=== PATIENT | male | born 1950 | race Caucasian/White ===

== ENCOUNTER 2018-12-01 07:27 | Day surgery (SDC) | payer MEDICARE ==
[~2018-12-01 07:27] MED LIST: Ak-Dilate OPHTHALMIC*** 1.065 ML, Cyclogyl 1% OPHTH SOL 5 ML 1.065 ML, GATIFLOXACIN 0.5... OP ONE; Lactated Ringers 1,000 ML IV SCH; TETRACAINE 0.5% STERI-UNIT SOL OP ONE
[2018-12-01] MEDS ORDERED: Lactated Ringers 1,000 ML IV ONE ×2 (07:34→10:47)
[2018-12-01] MEDS ORDERED: BSS 500 ML, Fortaz/Tazicef 1 GM** 0.2 G IO ONE ×2 (10:00)
[2018-12-01] MEDS ORDERED: Epinephrine Preservative Free 1 MG/ML INTRAOP ONE (10:00)
[2018-12-01] MEDS ORDERED: Zofran 4 MG/2 ML VIAL IV PRN (10:00)
[2018-12-01] MEDS ORDERED: BETADINE 5% OPHTHALMIC 30 ML OP ONE (10:00)
[2018-12-01] MEDS ORDERED: LIDOCAINE HCL 1% AMPUL 5 ML IJ ONE (10:00)
[2018-12-01] MEDS ORDERED: ACETAZOLAMIDE 250 MG TABLET PO ONE (10:00)
[2018-12-01] MEDS ORDERED: DIPRIVAN 200 MG/20 ML IV ONE ×2 (10:22→10:31)
[2018-12-01 12:04] VITALS: BP 143/79; PULSE 66; O2SAT 94
--- NOTE | 2018-12-01 15:36 | OP ---
DATE/TIME OF OPERATION: 12/01/2018 1025 TIME DICTATED: 1442 PREOPERATIVE DIAGNOSIS: Senile cataract of right eye. POSTOPERATIVE DIAGNOSIS: Senile cataract of right eye. SURGEON: Tello Paulino MD WEBSPH[employer] COMMERCE DEVELOPER: None. OPERATION: Cataract extraction of right eye with an intraocular lens implant. STANDARD __X___ COMPLEX ANESTHESIA: MAC. __X__ Monitored anesthesia care in combination with topical and intra-cameral anesthesia (because of the established specific risk of reflux, arrhythmias, or an anxiety attack associated with ocular manipulation as well as difficulty of the pathology laboratory director to manage such potentially catastrophic events while simultaneously attempting to complete the surgical procedure, it was deemed necessary for the patient's safety to have an anesthesiologist or a nurse project developer present during the procedure whenever possible. The anesthesiologist or the nurse project developer was utilized to monitor and regulate the intravenous sedation of the patient, so the patient was cooperative, relaxed, and comfortable). Topical anesthesia using Tetracaine eye drops together with intra cameral anesthesia using Lidocaine 1% MPF. The nurse was utilized to monitor the patient. ANESTHESIA PROVIDER: Dipak Delgado CRNA. COMPLICATIONS: None. BLOOD LOSS: None. INDICATIONS: The patient is undergoing cataract surgery in the hopes of eliminating the visual complaints and difficulty. PROCEDURE: After arriving at the facility's outpatient surgery area, an IV was started; the patient was given 5 mg of p.o. Versed. (If an anesthesia provider was not monitoring the patient) The patient was then given topical anesthetic Tetracaine eye drops. A cotton pellet was soaked into a solution of a combination of Zymaxid 0.5%, Anil-Synephrine 2.5% and Ocufen (other drops might have been substituted referenced in the patient's record). The pellet was inserted by the RN into the lower conjunctival cul-de-sac with a sterile forceps and left for 20 minutes. The pellet was then removed by the RN with a sterile forceps before taking the patient to the operating room. The preoperative area nurse identified the patient and marked the correct eye to be operated on. I identified the correct eye to be operated on and marked it appropriately in the outpatient surgery area. The patient was then taken into the operating room. Tetracaine eye drops were installed again in the correct eye. The eyelids and the lashes and the lid margins were scrubbed with Betadine solution. One drop of the diluted Betadine solution was placed in the conjunctival cul-de-sac for 45 seconds and then was irrigated. A drop of Tetracaine Gel was placed in the conjunctival cul-de-sac. The patient's forehead was taped to secure it during the procedure. The patient was monitored. The patient was then draped in the usual way for this procedure. An eye speculum was used to separate the eyelids. The eye was then fixated and a temporal 2.5 mm incision was made in the clear cornea temporally at the limbus. Through the incision, 0.25 cc of 1% non-preserved lidocaine was injected into the anterior chamber for intracameral anesthesia. The anterior chamber was then filled with viscoelastic. The pupil was small. I felt that it would be safer to mechanically dilate the pupil. A Malyugin ring was used at this point which dilated the pupil. That was removed at the end of the procedure prior to aspiration of the viscoelastic from the anterior chamber and posterior to the intraocular lens implant. The cataract had a great amount of cortical changes. That rendered seeing the anterior capsule difficult for a safe performance of an anterior capsulotomy. I injected an air bubble into the anterior chamber. I then injected 1 ML of vision blue solution into the anterior chamber. The vision blue solution was irrigated from the anterior chamber after 30 seconds. The anterior capsule was stained which facilitated performing the anterior capsulotomy safely. After that was completed, a cystotome was introduced into the anterior chamber and a round anterior capsulotomy was performed. The capsule was removed by a forceps. Hydrodissection was next carried utilizing a 25-gauge cannula and balanced salt solution to delineate the cortical material from the capsule and the nucleus from the cortical material. The nucleus was rotated freely into the capsular bag with no difficulty. The phaco tip of the [employer] Phacoemulsifier was introduced into the anterior chamber and two grooves were made into the nucleus 90 degrees apart. Using two spatulas resulted into the nucleus being fractured into four quadrants. The phaco tip was then used to remove each quadrant of the nucleus. Viscoelastic was used during this process to protect the corneal endothelium. Once the entire nucleus was removed, the phaco tip then was removed and the irrigation tip was introduced into the eye and the cortex was removed. The posterior capsule was polished. It was noticed that there was a tear into the posterior capsule with few vitreous strands into the pupil plan. An anterior vitrectomy was performed. A 23.00 diopter, [id number], posterior chamber lens implant, was inspected and found to be grossly normal. The implant was inserted into the implant injector cartridge; Viscoelastic again was introduced into the anterior chamber, which filled the capsular bag. The implant injector's cartridge tip was placed at the limbal wound and the posterior chamber implant was released into the capsular bag and rotated appropriately. The implant was found to be into the capsular bag and it was centered. 0.2 ml of Tri-Moxi was introduced via 27 gauge cannula into the vitreous cavity through the ciliary processes. Viscoelastic was aspirated from the anterior chamber and posterior to the intraocular lens implant from the capsular bag using the irrigating tip. The anterior chamber was irrigated and filled with 5 cc antibiotic solution (500 cc of BSS plus 2 ml of Fortaz 100 mg/ml) ( if patient was not allergic to the medication). The lips of the corneal incision were hydrated using BSS solution. The anterior chamber was checked and found to be water tight. ___X__ One drop each of antibiotic, steroid and NSAID drops (refer to chart for drops used) were placed in the conjunctival cul-de-sac of the operated eye. Patient tolerated the procedure quite well and left the operating room in satisfactory condition. DISCHARGE SUMMARY: The patient was released in stable condition. The patient and those with the patient were given an instruction sheet as of how to care for the eye after surgery as well as counseling on any abnormal laboratory studies by the postoperative RN. The patient was also given an appointment card for follow-up in the office and is to call immediately for any difficulties including but not limited to pain in the eye, decreased vision, discharge from the eye, headache and or fever. DISCHARGE DIAGNOSIS: Pseudophakia of right eye.
== END 2018-12-01 11:55 | disposition home or self-care (01) ==
LOC: SDC 07:27
PROVIDERS: ATTEND Ophthalmology
DX: H25.811 Combined forms of age-related cataract, right eye (principal); E11.9 Type 2 diabetes mellitus without complications; I10 Essential (primary) hypertension; E78.00 Pure hypercholesterolemia, unspecified; Z79.899 Other long term (current) drug therapy
CPT/HCPCS: C1780; J0171; J2704; A9270-GY

== ENCOUNTER 2020-09-04 10:26 | Day surgery (SDC) | payer MEDICARE ==
[~2020-09-04 10:26] MED LIST changes: -Ak-Dilate OPHTHALMIC*** 1.065 ML, Cyclogyl 1% OPHTH SOL 5 ML 1.065 ML, GATIFLOXACIN 0.5... OP ONE; +Lactated Ringers 1,000 ML IV ONE; -Lactated Ringers 1,000 ML IV SCH; -TETRACAINE 0.5% STERI-UNIT SOL OP ONE
[2020-09-04] MEDS ORDERED: Lactated Ringers 1,000 ML IV SCH (10:30)
[2020-09-04] MEDS ORDERED: DIPRIVAN 200 MG/20 ML IV ONE (13:09)
--- NOTE | 2020-09-04 13:25 | HP ---
PROCEDURE DATE: 09/04/2020 HISTORY OF PRESENT ILLNESS: The patient is a 70 y/o with no prior colonoscopy. No blood stools. No change in bowel movements. No pain. PAST MEDICAL HISTORY: Diabetes. Some hypertension and hyperlipidemia. CURRENT MEDICATIONS: Simvastatin, potassium chloride, Lisinopril, , , gabapentin, furosemide, cream prn, amlodipine, Basaglar, and Cialis. PAST SURGICAL HISTORY: He had left knee and left and right big toe joint procedure in the past. Also include back surgery and appendectomy. SOCIAL HISTORY: No smoking. Does drink some alcohol. REVIEW OF SYSTEMS: 14 systems reviewed pertinent for diabetes, a little bit hard of hearing. No chest pain or palpitations. Other systems negative or noncontributory other than above and per admission assessment. PHYSICAL EXAMINATION: GENERAL: No acute distress. HEENT: Sclerae nonicteric. NECK: No JVD. CHEST: Equal excursion. Nonlabored breathing. CVS: Regular rate and rhythm. ABDOMEN: Soft. No peritoneal signs. EXTREMITIES: No significant edema. NEURO: Alert, moving extremities symmetrically. PSYCH: Appropriate mood and affect. RECTAL: Deferred until time of endoscopy exam. IMPRESSION: 1. NO PRIOR COLONOSCOPY. NEEDS SCREENING COLONOSCOPY. Risks and benefits explained in detail. Shown the risk sheet. Explained the procedure detail including risk of bleeding; infection; risk of bowel injury or perforation possibly requiring open procedure; risk of missed or nondiagnosis or incomplete exam possibly requiring barium enema or other studies or procedures; general risk of anesthesia or sedation; risk of bowel prep, but not limited to. Consent obtained. Will proceed with outpatient screening colonoscopy.
[2020-09-04 14:09] VITALS: O2SAT 98
[2020-09-04 14:40] VITALS: BP 152/78; PULSE 74
--- NOTE | 2020-09-05 12:18 | OP ---
SURGERY DATE: 09/04/2020 SURGERY TIME: 1315 PREOPERATIVE DIAGNOSIS: 1. NEED FOR SCREENING COLONOSCOPY. NO PRIOR COLONOSCOPY. POSTOPERATIVE DIAGNOSIS: 1. FAIR BOWEL PREP. 2. CLASS II. 3. 1.3 CM POLYP DISTAL SIGMOID COLON. 4. SMALLER POLYPS ASCENDING COLON, TRANSVERSE COLON, AND SIGMOID COLON. 5. MILD DIVERTICULOSIS. PROCEDURE: 1. Colonoscopy to terminal ileum. 2. Retrograde ileoscopy. 3. Hot snare polypectomy of 2 small proximal ascending colon polyps. 4. Hot biopsy polypectomy small transverse colon polyp. 5. Hot biopsy polypectomy of 3 small early sigmoid colon polyps. 6. Hot snare polypectomy of larger, approximately 1.3 cm, polyp distal sigmoid colon with ink spot tattooing the location. SURGEON: Dr. John Callejas. ANESTHESIA: MAC. ESTIMATED BLOOD LOSS: Minimal. INDICATIONS: As noted above. Risks and benefits explained in detail, but not limited to. Consent obtained. DESCRIPTION OF PROCEDURE AND FINDINGS: The patient was taken to the endoscopy room. MAC anesthesia induced after official time-out explaining procedure. Digital rectal exam did not reveal any masses. Video colonoscope inserted and passed up through the slightly tortuous sigmoid, descending, transverse, and ascending colon around to the cecum. Appendiceal orifice and bowel were identified and photo documented as well as the terminal ileum. Retrograde ileoscopy was performed which was grossly unremarkable. The scope was then carefully withdrawn over the next 13 minutes. Withdrawal time was approximately 13 minutes. Two small polyps in the proximal ascending colon about 3 mm in size were removed with hot snare polypectomy. Good hemostasis noted. Small 2 mm polyp in the transverse colon was removed with hot biopsy forceps and brief bursts of cautery. Good hemostasis noted. Hot biopsy polypectomy was also accomplished with 3 small early sigmoid colon polyps. There was one larger approximately 1.3 cm pedunculated polyp. This was removed completely with the snare and brief bursts of cautery elevating it well away from the bowel wall. The site was marked with ink spot tattooing. This was in the distal sigmoid colon. Good hemostasis noted. The remainder of the rectum grossly unremarkable at this time. The scope was withdrawn. The patient tolerated the procedure well. There were no immediate complications. We will see him back in the office next week to go over the path results.
== END 2020-09-04 14:40 | disposition home or self-care (01) ==
LOC: SDC 10:26
PROVIDERS: ATTEND Surgery
DX: Z12.11 Encounter for screening for malignant neoplasm of colon (principal); K57.30 Diverticulosis of large intestine without perforation or abscess without bleeding; D12.2 Benign neoplasm of ascending colon; D12.5 Benign neoplasm of sigmoid colon; D12.3 Benign neoplasm of transverse colon; E11.9 Type 2 diabetes mellitus without complications; I10 Essential (primary) hypertension; E78.5 Hyperlipidemia, unspecified; Z79.899 Other long term (current) drug therapy
CPT/HCPCS: 82947; 99100; J2704

== ENCOUNTER 2021-01-30 07:31 | Day surgery (SDC) | payer MEDICARE ==
[~2021-01-30 07:31] MED LIST changes: +Ak-Dilate OPHTHALMIC*** 1.065 ML, Cyclogyl 1% OPHTH SOL 5 ML 1.065 ML, GATIFLOXACIN 0.5... OP ONE; +BETADINE 5% OPHTHALMIC 30 ML OP ONE; +Lactated Ringers 1,000 ML IV SCH; +NON-FORMULARY ITEM IJ ONE; +NON-FORMULARY ITEM OP ONE; +TETRACAINE 0.5% STERI-UNIT SOL OP ONE; +cefUROXime sodium 0.005 GM in Sodium Chloride Flush 30 ML*** 0.5 ML IJ ONE
[2021-01-30] MEDS ORDERED: LIDOCAINE HCL 1% 50 MG/5 ML VL PF IJ ONE (07:32)
[2021-01-30] MEDS ORDERED: Epinephrine Preservative Free 1 MG/ML IJ ONE (07:32)
[2021-01-30] MEDS ORDERED: ACETAZOLAMIDE 250 MG TABLET PO ONE (09:00)
[2021-01-30] MEDS ORDERED: Zofran 4 MG/2 ML VIAL IV PRN (09:00)
[2021-01-30] MEDS ORDERED: SUBLIMAZE 100 MCG/2 ML ONE (09:45)
[2021-01-30] MEDS ORDERED: Versed 2 MG/2 ML Injection ONE (09:45)
[2021-01-30] MEDS ORDERED: ROBINUL ONE (09:45)
[2021-01-30] MEDS ORDERED: DIPRIVAN 200 MG/20 ML IV ONE (09:45)
== END 2021-01-30 10:57 | disposition home or self-care (01) ==
LOC: SDC 07:31
PROVIDERS: ATTEND Ophthalmology
DX: H25.812 Combined forms of age-related cataract, left eye (principal); Z79.899 Other long term (current) drug therapy; E11.9 Type 2 diabetes mellitus without complications
CPT/HCPCS: 82947; 99100; C1780; J0171; J2001; J2250; J2704; J3010; A9270-GY

== ENCOUNTER 2021-12-03 10:04 | Day surgery (SDC) | payer MEDICARE ==
--- NOTE | 2021-12-03 08:11 | HP ---
DATE OF SURGERY: 12/03/2021 HISTORY OF PRESENT ILLNESS: The patient is a 71-year-old with enlarging cyst right side neck and desires excision. He is concerned about risk of infection. PAST MEDICAL HISTORY: Diabetes, hypertension, hyperlipidemia. PAST SURGICAL HISTORY: Knee surgery. Toe surgery. Back surgery. Appendectomy. He had colonoscopy in the past. MEDICATIONS: Includes gabapentin, Simvastatin, lisinopril, furosemide, Insulin Glargine, potassium chloride, metformin, amlodipine, semaglutide, Fenofibrate. ALLERGIES: NKDA. FAMILY HISTORY: Negative in regards to this problem. SOCIAL HISTORY: No smoking. Some alcohol use denies abuse. REVIEW OF SYSTEMS: Fourteen systems reviewed pertinent for multiple medical problems as noted above. He is a little bit hard of hearing. No chest pain or palpitations. Other systems negative or noncontributory as above and per preadmission questionnaire. PHYSICAL EXAMINATION: GENERAL: No acute distress. HEENT: Sclerae nonicteric. NECK: No JVD. He has a right neck cyst or nodule. CHEST: Equal excursion, nonlabored breathing. CVS: Regular rate and rhythm. ABDOMEN: Soft. No peritoneal signs. EXTREMITIES: No significant edema. NEURO: Alert, oriented, moving extremities symmetrically. No gross motor deficits noted. PSYCH: Appropriate mood and affect. IMPRESSION: Neck cyst or nodule in need of excision for definitive path and treatment. Risks and benefits explained in detail including but not limited to bleeding or infection, risk of wound dehiscence possibly requiring packing, general risk of aches, pains, burning or numbness but not limited to. General risk of anesthesia, deep venous thrombosis, pulmonary embolism, or pneumonia but not limited to. What we excise likely will not recur, will send off for lab. He could develop another cyst or nodule adjacent to or elsewhere on his body. He understands and agrees to the planned procedure, will proceed with excisional biopsy of right neck cyst or nodule as an outpatient.
[~2021-12-03 10:04] MED LIST changes: -Ak-Dilate OPHTHALMIC*** 1.065 ML, Cyclogyl 1% OPHTH SOL 5 ML 1.065 ML, GATIFLOXACIN 0.5... OP ONE; -BETADINE 5% OPHTHALMIC 30 ML OP ONE; -Lactated Ringers 1,000 ML IV SCH; -NON-FORMULARY ITEM IJ ONE; -NON-FORMULARY ITEM OP ONE; +Sensorcaine 0.25% 10 ML ONE; -TETRACAINE 0.5% STERI-UNIT SOL OP ONE; -cefUROXime sodium 0.005 GM in Sodium Chloride Flush 30 ML*** 0.5 ML IJ ONE
[2021-12-03] MEDS ORDERED: Lactated Ringers 1,000 ML IV SCH (10:30)
[2021-12-03 10:47] LABS: ANION GAP 14.5 MEQ/L (5-15); BLOOD UREA NITROGEN 15 mg/dL (9-20); CHLORIDE 105 mmol/L (98-107); Calcium 9.9 mg/dL (8.4-10.2); Carbon Dioxide 23 mmol/L (22-30); Creatinine 1 1.04 mg/dL (0.66-1.25); EST GLOMERULAR FILTRATION RATE > 60.0 ML/MIN; Glucose 119 mg/dL (74-106); Potassium 4.4 mmol/L (3.5-5.1); SODIUM 138 mmol/L (137-145)
[2021-12-03] MEDS ORDERED: DIPRIVAN 200 MG/20 ML IV ONE (12:38)
[2021-12-03] MEDS ORDERED: XYLOCAINE 1% HCL 20 ML MDV ONE (12:38)
[2021-12-03] MEDS ORDERED: Versed 2 MG/2 ML Injection ONE (12:38)
[2021-12-03] MEDS ORDERED: SUBLIMAZE 100 MCG/2 ML ONE ×2 (12:38→13:00)
[2021-12-03] MEDS ORDERED: Sensorcaine 0.25% 10 ML ONE (12:45)
[2021-12-03] MEDS ORDERED: KEFZOL 1 GM ONE (13:00)
--- NOTE | 2021-12-03 13:53 | OP ---
SURGERY DATE/TIME: 12/03/2021 1245 PREOPERATIVE DIAGNOSIS: Persistent right neck cyst in need of excision. POSTOPERATIVE DIAGNOSIS: Persistent right neck cyst in need of excision. PROCEDURE: Excisional biopsy right neck cyst (approximately 2 cm). SURGEON: Dr. John Callejas. ANESTHESIA: General. ESTIMATED BLOOD LOSS: Minimal. INDICATIONS: As noted above. Risks and benefits explained in detail and not limited to and consent obtained. The site was marked and confirmed in the preoperative holding area. DESCRIPTION OF PROCEDURE AND FINDINGS: Taken to the OR. General anesthesia induced. The neck is prepped and draped in the usual sterile fashion. After official time out and no disagreement with planned procedure, marking out around this area. Dissection carried down to normal appearing subcutaneous tissue beneath dissecting off the underlying fascia. It is carefully mobilized upwards. It was about a 2 cm cyst passed off for pathology. Good hemostasis noted. The wound was closed with 3-0 Vicryl closing the deep and superficial subcu. Skin closed with 4-0 Vicryl. Steri-Strips and sterile dressing applied. 0.25% Marcaine local injected along the wound. The patient tolerated the procedure well. There were no immediate complications. Findings discussed with the family out in the waiting area.
[2021-12-03 14:32] VITALS: BP 189/93; PULSE 74; O2SAT 96
== END 2021-12-03 14:35 | disposition home or self-care (01) ==
LOC: SDC 10:04
PROVIDERS: ATTEND Surgery
DX: L72.0 Epidermal cyst (principal); I10 Essential (primary) hypertension
CPT/HCPCS: 36415; 80048; 93005; 99100; J0690; J2250; J2704; J3010

== ENCOUNTER 2022-11-11 09:38 | Day surgery (SDC) | payer MEDICARE ==
--- NOTE | 2022-11-11 08:19 | HP ---
DATE OF SURGERY: 11/11/2022 HISTORY OF PRESENT ILLNESS: The patient is a 72-year-old with history of polyp last colonoscopy. He is in need of follow up colonoscopy. No bloody stools. No change in bowel movements. No new pain. Family history negative for colon cancer. PAST MEDICAL HISTORY: Hypertension, hyperlipidemia, diabetes mellitus type II. PAST SURGICAL HISTORY: Appendectomy. Toe surgery. Knee surgery. MEDICATIONS: Simvastatin, Ozempic, Metformin, lisinopril, levofloxacin, Klor-Con, Kerendia, gabapentin, gentamicin, furosemide, Fenofibrate, Farxiga, Insulin Glargine, amlodipine. ALLERGIES: NKDA. FAMILY HISTORY: Negative for colon cancer. SOCIAL HISTORY: Former smoking. Occasional alcohol use. REVIEW OF SYSTEMS: Fourteen systems reviewed. No chest pain or palpitations. Other systems negative or noncontributory as above and per preadmission questionnaire. PHYSICAL EXAMINATION: Height 5'11". BMI 40. GENERAL: No acute distress. HEENT: Sclerae nonicteric. EOMI. Oral mucous membranes moist. NECK: No JVD. CHEST: Equal excursion, nonlabored breathing. CVS: Regular rate and rhythm. ABDOMEN: Soft. EXTREMITIES: No significant edema. NEURO: Alert, oriented, moving extremities symmetrically. RECTAL: Deferred timed to endoscopy exam. PSYCH: Appropriate mood and affect. SKIN: Dry. IMPRESSION: History of large polyp on last colonoscopy. He is in need of follow up colonoscopy. He was shown the risk sheet explained the procedure in detail including but not limited to bleeding or infection, risk of bowel injury or perforation, risk of missed or nondiagnosis or incomplete exam, possibly requiring barium enema, other studies or procedures, general risk of anesthesia or sedation, risk of bowel prep or sedation but not limited to, consent obtained. Will proceed with colonoscopy under MAC anesthesia as an outpatient. Otherwise will continue his medications for hyperlipidemia, hypertension and diabetes. Will continue his home medications if there are not any issues.
[2022-11-11] MEDS ORDERED: Lactated Ringers 1,000 ML IV SCH (10:30)
[2022-11-11 10:36] VITALS: RESP 18
[2022-11-11] MEDS ORDERED: Versed 2 MG/2 ML Injection ONE (11:50)
[2022-11-11] MEDS ORDERED: Xylocaine-Mpf 2% 5 Ml Vial ONE (11:50)
[2022-11-11] MEDS ORDERED: DIPRIVAN 200 MG/20 ML IV ONE ×2 (11:50→11:54)
[2022-11-11 12:36] VITALS: TEMP 98.7
[2022-11-11 12:53] VITALS: BP 124/54; PULSE 70; O2SAT 97
--- NOTE | 2022-11-11 13:43 | OP ---
SURGERY DATE/TIME: 11/11/2022 1153 PREOPERATIVE DIAGNOSIS: History of large polyp in the past in need of short term follow up colonoscopy. POSTOPERATIVE DIAGNOSES: 1) Small polyp. 2) Few small diverticula. 3) No evidence of recurrence of the large polyp. PROCEDURES: Colonoscopy to cecum with hot biopsy piecemeal polypectomy of one - 2 mm polyp in the ascending colon otherwise hot biopsy polypectomy small 2 mm polyps ascending colon x1, sigmoid colon approximately 4 and rectum x1 or 2. SURGEON: Dr. John Callejas. ANESTHESIA: MAC. ESTIMATED BLOOD LOSS: Minimal. INDICATIONS: As noted above. Risks and benefits explained in detail but not limited to and consent obtained. DESCRIPTION OF PROCEDURE AND FINDINGS: The patient is taken to the endoscopy room. MAC anesthesia induced. After official time out and no disagreement with planned procedure, digital rectal exam did not reveal any rectal masses. Video colonoscope inserted and passed up through the tortuous sigmoid, descending, transverse and ascending colon around to the cecum. Appendiceal orifice and valve photo documented. Prep overall is fair with a little bit of liquidy stool throughout the colon. His ASA Class is II. Withdrawal time was approximately 11 minutes. The scope was carefully withdrawn. There were two polyps in the ascending colon. One was removed in piecemeal fashion and appeared to be a little bit more adenomatous about 3 mm and the other one was more 2 mm possibly hyperplastic versus other adenoma, removed with hot biopsy forceps. The sigmoid colon had a few dots in left colon of diverticula and back where the blue dye was injected at the prior large polyp there is no evidence of any recurrence of large polyp. There was a small polyp that appeared to be just septal polyp removed with hot biopsy polypectomy as well as three other early polyps versus hyperplastic lesion removed with hot biopsy forceps. Scope pulled back to the rectum. One or two small early polyps versus hyperplastic lesion removed with hot biopsy polypectomy. Good hemostasis was noted. The scope is withdrawn. The patient tolerated the procedure well. Withdrawal time 11 minutes. Findings discussed with his out in the waiting area.
== END 2022-11-11 13:00 | disposition home or self-care (01) ==
LOC: SDC 09:38
PROVIDERS: ATTEND Surgery
DX: Z09 Encounter for follow-up examination after completed treatment for conditions other than malignant neoplasm (principal); Z86.010 Personal history of colon polyps; E11.9 Type 2 diabetes mellitus without complications; K57.30 Diverticulosis of large intestine without perforation or abscess without bleeding; D12.2 Benign neoplasm of ascending colon; D12.5 Benign neoplasm of sigmoid colon; K62.1 Rectal polyp
CPT/HCPCS: 82947; 93005; 99100; J2250; J2704

== ENCOUNTER 2023-07-10 11:55 | Day surgery (SDC) | payer MEDICARE ==
[2023-07-10] MEDS ORDERED: Marcaine Mpf 0.5% Vial 30 Ml ONE (13:23)
[2023-07-10] MEDS ORDERED: Xylocaine 1% Vial 30 ML PF IJ ONE (13:23)
[2023-07-10 13:56] VITALS: BP 177/85; PULSE 62; RESP 16; TEMP 97.8; O2SAT 96
--- NOTE | 2023-07-11 11:14 | OP ---
SURGERY TIME: 1326 PREOPERATIVE DIAGNOSIS: 1. DIABETIC PERIPHERAL NEUROPATHY. 2. OSTEOMYELITIS. 3. CHRONIC DIABETIC FOOT WOUND. 4. CONTROLLED DIABETES. POSTOPERATIVE DIAGNOSIS: 1. DIABETIC PERIPHERAL NEUROPATHY. 2. OSTEOMYELITIS. 3. CHRONIC DIABETIC FOOT WOUND. 4. CONTROLLED DIABETES. PROCEDURE: 1. Bone biopsy. SURGEON: Dimitrios Brown D.P.M. GYROSCOPIC ENGINEERING TECHNICIAN: None. ANESTHESIA: Local. HEMOSTASIS: A pressure dressing. ESTIMATED BLOOD LOSS: Approximately 1 cc. MATERIALS: None. INJECTABLES: 10 cc of a 1:1 mixture of 1% Lidocaine plain and 0.5% Bupivicaine plain injected in a hallux block type fashion to the right hallux. INDICATIONS FOR PROCEDURE: Shahzad is a very pleasant 73 year-old male well known to my service for a recurrent wound underneath the 1st hallux of the right great toe. This has been ongoing for a number of years and has been constantly callused, open, and with multiple infections that have cleared without complication. The patient recently went to [place] as he does every winter and returned. On discharge from our service, he was very close to being healed to the bilateral lower extremity. On his return, he had a 3 week history of cellulitis to the toe and extending into his foot with a significant amount of drainage coming out of the wound. As a result, the patient was concerned and did have some time before making it into the clinic for reassessment. On assessment, this time, he had a positive probe to bone which was different than any other time. An MRI was obtained demonstrating some indications of loosening of his 1st metatarsophalangeal joint implant as well as possible indications of osteomyelitis to the proximal phalanx. As a result, the decision was made to proceed with a bone biopsy due to its increased sensitivity over a MRI. The patient has been made aware of all risks, complications, and benefits of surgical intervention at this time including, but not limited to, infection; hematoma/seroma; possibility of delayed wound healing; non-wound healing; and possible need for further surgical intervention at a later date. No guarantees were provided as to the outcome. Patient understands that there is a possibility of loss of limb as a result of the results and careful attention must be made after the procedure in order to prevent any worsening of symptoms during this period of time. The patient understands that risk and wishes to proceed. Plenty of time was allowed to provide questions which were answered to his apparent satisfaction. It is at this time, we decided to proceed. DESCRIPTION OF PROCEDURE: The patient was brought into the OR. Placed on the OR table in the supine position. The right foot was prepped and draped in the typical sterile fashion and lowered onto the surgical field. At this time, a 10 cc block consisting of a 1:1 mixture of 1% Lidocaine plain and 0.5% Bupivicaine plain was injected in a hallux block type fashion. Following this, a Jamshidi needle was utilized to resect a small amount of bone for pathological assessment. This was handed off the field and sent for pathology. Following this, a dressing consisting of Betadine, Adaptic, 4 X 4, and Coban was applied to the right great toe. Patient was then returned to the Pre-Op area with vital signs stable and vascular status intact. He handled the procedure without complication. Postoperative orders as indicated in the patient's discharge chart.
== END 2023-07-10 14:15 | disposition home or self-care (01) ==
LOC: SDC 11:55
PROVIDERS: ATTEND Podiatrist Foot & Ankle Surgery
DX: E11.621 Type 2 diabetes mellitus with foot ulcer (principal); E11.42 Type 2 diabetes mellitus with diabetic polyneuropathy; M86.9 Osteomyelitis, unspecified
CPT/HCPCS: 20240; J2001

== ENCOUNTER 2023-08-14 11:05 | Inpatient (IN) | payer MEDICARE ==
[2023-08-14] MEDS ORDERED: TYLENOL 325 MG PO PRN (12:06)
[2023-08-14] MEDS ORDERED: Zofran 4 MG/2 ML VIAL IV PRN (12:13)
[2023-08-14] MEDS ORDERED: HUMALOG SQ PRN (12:13)
[2023-08-14] MEDS: PHARMACY RENAL DOSING MC ONE (12:52)
--- NOTE | 2023-08-14 13:03 | PCM.HP ---
History of Present Illness - Chief Complaint Chief Complaint: Cellulitis History of Present Illness: is a 73 year old male with a pmhx of HLD, HTN, SOUTH, and DMII patient of Dr. Brown directly admitted for diabetic foot ulcer to the right great toe that has failed outpatient treatment with doxycycline. Recent right foot and right great toe wound culture from 07/02/23 and 08/07/23 showing Enterobacter clocae complex and proteus mirabilis. Patient states the wound has been non- healin for approximately 8-9 months but over the past week week he has had subjective fevers, nausea, erythema, joint aches, and a "throbbing sensation" down the medial aspect of his right lower extremity. He did have a venous doppler on 08/07/23 which was negative for DVT at that time. Right ankle and foot Xrays from 08/14/23 with no acute findings. Discussed plan with Dr. Brown, plan is for IV abx with vanc/zosyn, MRI right foot, repeat venous doppler, and arterial doppler. He will follow patient. Lab findings done OP today show leukocytosis with WBC at 13.5, ESR of 109 and FLORENTINO with creat at 1.56. - Review of Systems Constitutional: Fever, Chills Eyes: No Symptoms Ears, Nose, & Throat: No Symptoms Respiratory: No Symptoms Cardiac: No Symptoms Abdominal/Gastrointestinal: No Symptoms Genitourinary Symptoms: No Symptoms Musculoskeletal: Joint Pain (RLE) Skin: Cellulitis (right great toe to mid foot), Skin Lesions (right great toe) Neurological: No Symptoms Psychological: No Symptoms Endocrine: No Symptoms Medications & Allergies Home Medications: Home Medication List Gabapentin [Neurontin ] 400 mg PO BID 11/27/18 [History Confirmed 08/14/23] Insulin Glargine,Hum.rec.anlog [Basaglar Patiencepen U-100] 70 unit SQ HS 11/27/18 [History Confirmed 08/14/23] Lisinopril 20 mg [Zestril 20 MG] 40 mg PO DAILY 11/27/18 [History Confirmed 08/14/23] Simvastatin 10 mg [Zocor 10MG] 10 mg PO DAILY 11/27/18 [History Confirmed 08/14/23] Metformin HCl 500 mg [Glucophage 500 MG] 500 mg PO DAILY 08/16/20 [History Confirmed 08/14/23] Semaglutide [Ozempic] 1 mg SQ WEEKLY 08/16/20 [History Confirmed 08/14/23] Fenofibrate 54 mg PO DAILY 11/21/21 [History Confirmed 08/14/23] Insulin Aspart (Niacinamide) [Fiasp 100 Unit/ml Vial] 20 unit SQ TIDWMEALS 11/21/21 [History Confirmed 08/14/23] Cyanocobalamin (Vitamin B-12) [Vitamin B-12] 5,000 mg PO DAILY 10/17/22 [History Confirmed 08/14/23] Gentamicin 0.1% Cream [Gentamicin Sulfate 0.1% Cream] 1 applic TOP TID PRN 10/17/22 [History Confirmed 08/14/23] Dapagliflozin Propanediol [Farxiga] 10 mg PO DAILY 08/14/23 [History Confirmed 08/14/23] Doxycycline Hyclate 100 mg [Vibramycin 100 MG] 100 mg PO DAILY 08/14/23 [History Confirmed 08/14/23] Finerenone [Kerendia] 10 mcg PO DAILY 08/14/23 [History Confirmed 08/14/23] Gabapentin [Neurontin] 600 mg PO HS 08/14/23 [History Confirmed 08/14/23] HydrALAzine HCL 25 MG TAB [Apresoline 25 MG TABLET] 25 mg PO TID 08/14/23 [History Confirmed 08/14/23] Allergies/Adverse Reactions: Allergies Allergy/AdvReac Type Severity Reaction Status Date / Time No Known Drug Allergies Allergy Verified 07/10/23 12:25 - Past Medical History Past Medical History: Yes Neurological History: No Pertinent History ENT History: Cataracts Cardiac History: High Cholesterol, Hypertension Respiratory History: Sleep Apnea Endocrine Medical History: Diabetes Type II Musculoskelatal History: Osteoarthritis GI Medical History: No Pertinent History History: No Pertinent History Pyscho-Social History: No Pertinent History Male Reproductive Disorders: No Pertinent History - Past Surgical History Past Surgical History: Yes Neuro Surgical History: No Pertinent History Cardiac History: No Pertinent History Respiratory Surgery: No Pertinent History GI Surgical History: Appendectomy Genitourinary Surgical Hx: No Pertinent History Musculskeletal Surgical Hx: Orthopedic Surgery, Other Male Surgical History: No Pertinent History Other Surgical History: left knee, bilat big toe joints,back,vastectomy, colonoscopy - Social History Smoking Status: Former smoker Exposure to second hand smoke: No Alcohol: Occasionally Drug Use: none - Social Determinants of Health Will the patient participate in the screening: Yes Do you worry about a steady place to live?: No Do you have any problems with any of the following?: No known problems In the past 12 months,have you had to go without utilities?: No Have you or anyone in your house had to go without enough: No Transportation Issues: No Has anyone in your support network made you feel unsafe?: No Does the patient want assistance with any of the above?: No - Physical Exam Vital Signs: Vital Signs - 24 hr Temp Pulse Resp BP Pulse Ox 08/14/23 11:19 98.6 F 65 18 180/74 95 General Appearance: no apparent distress Neurologic Exam: alert, oriented x 3, cooperative Eye Exam: PERRL/EOMI Ears, Nose, Throat Exam: normal ENT inspection Neck Exam: normal inspection Respiratory Exam: normal breath sounds, lungs clear Cardiovascular Exam: regular rate/rhythm, normal heart sounds Gastrointestinal/Abdomen Exam: soft, normal bowel sounds Rectal Exam: deferred Back Exam: normal inspection Extremity Exam: inflammation, swelling (RLE/right great toe) Skin Exam: other (right great toe ulcer covered in gauze/dressing surrounding erythema) Results - Labs Lab/Micro Results: Lab Results-Last 24 Hours 08/14/23 Range/Units 11:36 POC Glucometer 104 (74 to 106) mg/dL - Radiology Impressions Radiology Exams & Impressions: Radiology Procedures Category Date Time Status ARTERIAL BILAT LOWER EXTREMITY [US] Urgent Exams 08/14/23 12:16 Ordered MRI LOWER EXT JOINT W/CONTRAST [MRI] Routine Exams 08/14/23 12:13 Ordered VENOUS BILATERAL EXTREMITY [US] Urgent Exams 08/14/23 12:16 Ordered Assessment/Plan (1) Diabetic ulcer of right great toe Current Visit: Yes Status: Acute Assessment & Plan: -Discussed case with Dr. Plunkett, plan for vanc/zosyn -podiatry to follow to determine if surgical intervention needed -culture drainage -elevate affected limb -MRI right foot -scheduled for 08/15/23 -Venous/arterial doppler Code(s): E11.621 - TYPE 2 DIABETES MELLITUS WITH FOOT ULCER; L97.519 - NON-PRS CHRONIC ULCER OTH PRT RIGHT FOOT W UNSP SEVERITY (2) HTN (hypertension) Current Visit: Yes Status: Acute Assessment & Plan: -continue home meds Code(s): I10 - ESSENTIAL (PRIMARY) HYPERTENSION (3) HLD (hyperlipidemia) Current Visit: Yes Status: Acute Assessment & Plan: -continue statin Code(s): E78.5 - HYPERLIPIDEMIA, UNSPECIFIED (4) Type 2 diabetes mellitus Current Visit: Yes Status: Acute Assessment & Plan: -SSI/glargine -A1c -ADA diet Telemedicine Encounter - Telemedicine Encounter Telemedicine Encounter: The entirety of this encounter was performed via Telemedicine"
[2023-08-14] MEDS: Sodium Chloride 0.9% 1000 ML 1,000 ML IV SCH (13:10)
[2023-08-14] MEDS: PIPERACILLIN/TAZOBACTAM 3.375 GM in Sodium Chloride 100ML MINI-BAG PLUS 100 ML IV SCH (13:15)
[2023-08-14] MEDS ORDERED: MEDICATION INTERVENTION MC SCH ×2 (14:15)
[2023-08-14] MEDS: VANCOMYCIN 2 GRAM/400 ML BAG 2 GM/400 ML PIGGYBACK IV SCH (15:03)
[2023-08-14] MEDS: Apresoline 25 MG TABLET PO SCH (15:03)
[2023-08-14] MEDS: Neurontin PO SCH (15:07)
--- NOTE | 2023-08-14 17:03 | XRAY ---
Indication: Right leg pain and swelling. Two-dimensional sonogram and color Doppler imaging major venous vessels left and right leg performed. Comparison: Right leg venous sonogram August 07, 2023. No thrombus seen in the examined deep venous vessels left and right leg including greater saphenous vein. Veins demonstrate normal compressibility. Venous waveforms are normal with and without augmentation. Impression: Left and right legs negative for DVT, unchanged compared to one week ago.
[2023-08-14] MEDS: HUMALOG SQ SCH (17:06)
--- NOTE | 2023-08-14 17:07 | XRAY ---
Indication: Nonhealing diabetic ulcer. Two-dimensional sonogram and color Doppler imaging major arteries left and right leg performed. Comparison: None Examination right leg demonstrates widely patent common femoral, deep femoral, superficial femoral, popliteal, and posterior tibial arteries. Mild arteriosclerotic disease in remaining dorsal pedal artery. Arterial waveforms are multiphasic throughout right leg. Right arm brachial pressure not used due to indwelling IV. Left arm brachial pressure is 171. Right ankle pressure is 199. Ankle brachial index is 1.16, normal. Examination left leg demonstrates widely patent common femoral, deep femoral, superficial femoral, and popliteal arteries. Mild arteriosclerotic disease in the remaining posterior tibial and dorsal pedal arteries. Arterial waveforms are multiphasic throughout the left leg. Left ankle pressure is 161. Ankle brachial index is 0.94, normal. Impression: Mild arteriosclerotic disease in both lower legs without critical stenosis/obstruction. Left and right ABIs are normal.
[2023-08-14] MEDS: NEURONTIN PO SCH (22:50)
[2023-08-14] MEDS: Lantus Insulin SQ SCH (22:51)
[2023-08-15 04:58] LABS: Absolute Neutrophil Ct (ANC) 7.75 x10^3/uL (1.4-6.9); BASOPHIL % 0.6 % (0.0-0.4); Basophil (Absolute #) 0.07 x10^3/uL (0-0.4); Eosinophil % 3.4 % (0.00-5.0); Eosinophil (Absolute #) 0.43 x10^3/uL (0-0.5); Hematocrit 35.2 % (42-50); Hemoglobin 11.3 g/dL (12.5-18.0); IMMATURE GRAN # 0.31 x10^3u/L (0.00-0.03); IMMATURE GRAN % 2.5 % (0.00-0.4); Lymphocyte (Absolute #) 2.78 x10^3/uL (1.0-4.6); Lymphocytes % 22.2 % (24.0-44.0); Mean Cell Volume 88.2 fL (78-100); Mean Corpuscular Hemoglobin 28.3 pg (26-32); Mean Corpuscular Hgb Concent. 32.1 g/dL (32-36); Mean Platelet Volume 10.2 fL (7.5-11.0); Monocyte (Absolute #) 1.21 x10^3/uL (0.0-1.3); Monocytes % 9.6 % (0.0-12.0); Neutrophil % 61.7 % (36.0-66.0); Platelet Count 368 x10^3/uL (150-450); Red Blood Count 3.99 x10^6/uL (4.1-5.6); Red Cell Distribution Width 13.3 % (11.5-14.0); White Blood Count 12.6 x10^3/uL (4.0-10.5)
[2023-08-15 05:29] LABS: ALBUMIN 3.5 g/dL (3.5-5.0); BILIRUBIN,TOTAL 0.5 mg/dL (0.2-1.3); Calcium 8.7 mg/dL (8.4-10.2); Creatinine 1 1.62 mg/dL (0.66-1.25); EST GLOMERULAR FILTRATION RATE 44.5 ML/MIN; Potassium 4.6 mmol/L (3.5-5.1); Total Protein 7.3 g/dL (6.3-8.2)
[2023-08-15] MEDS ORDERED: D50W 50 ml Abboject IV ONE (07:08)
[2023-08-15] MEDS: D50W 50 ml Abboject IV ONE (07:11)
--- NOTE | 2023-08-15 08:17 | PCM.CONS ---
Podiatry HPI - Consult Date of Consultation Date: 08/15/23 Reason for Consult: Diabetic foot ulcer with cellulitis Consulting Provider: BRITTA BARRAGAN DPM - [facility] History of Present Illness: Shahzad is a very pleasant 73-year-old male well-known to my service with a significant past medical history of type 2 diabetes mellitus well-controlled with significant peripheral neuropathy, hypertension, hyperlipidemia. Patient is well-known to my service for a chronic ulcer underneath the great toe that has been ongoing for at least 1-2 years at this point. Patient has had an implant placed approximately 20 years ago by another provider. Since then his neuropathy has worsened associated with his diabetes mellitus and he has developed medial interphalangeal joint ulcerations which have responded to conservative therapy however the response is short-lived and recurs within a matter of months each time. Patient recently returned from [place] with ulceration to the level of bone he responded to conservative modalities of wound care and an instep fasciotomy that relieved some of the pressure underneath the great toe joint. In the last 2 weeks he has been showing indications of drainage from the wound on August 06 he did have a culture obtained demonstrating Enterobacter cloacae. He presented to my office yesterday with nausea vomiting fevers joint aches and pain on the right lower extremity as well as pain within his upper thigh. Venous Doppler was obtained last week as well as yesterday demonstrating negative for DVT to the bilateral lower extremity. Arterial Dopplers demonstrate adequate perfusion for healing. Outpatient labs performed yesterday demonstrated white blood cell count of 13.5 ESR of 109 and a creatinine of 1.56. He currently denies any other pedal complaints at this time Medications & Allergies Home Medications: Home Medication List Gabapentin [Neurontin ] 400 mg PO BID 11/27/18 [History Confirmed 08/14/23] Insulin Glargine,Hum.rec.anlog [Keishaaglrenata Rodriguez U-100] 70 unit SQ HS 11/27/18 [History Confirmed 08/14/23] Lisinopril 20 mg [Zestril 20 MG] 40 mg PO DAILY 11/27/18 [History Confirmed 08/14/23] Simvastatin 10 mg [Zocor 10MG] 10 mg PO DAILY 11/27/18 [History Confirmed 08/14/23] Metformin HCl 500 mg [Glucophage 500 MG] 500 mg PO DAILY 08/16/20 [History Confirmed 08/14/23] Semaglutide [Ozempic] 1 mg SQ WEEKLY 08/16/20 [History Confirmed 08/14/23] Fenofibrate 54 mg PO DAILY 11/21/21 [History Confirmed 08/14/23] Insulin Aspart (Niacinamide) [Fiasp 100 Unit/ml Vial] 20 unit SQ TIDWMEALS 11/21/21 [History Confirmed 08/14/23] Cyanocobalamin (Vitamin B-12) [Vitamin B-12] 5,000 mg PO DAILY 10/17/22 [History Confirmed 08/14/23] Gentamicin 0.1% Cream [Gentamicin Sulfate 0.1% Cream] 1 applic TOP TID PRN 10/17/22 [History Confirmed 08/14/23] Dapagliflozin Propanediol [Farxiga] 10 mg PO DAILY 08/14/23 [History Confirmed 08/14/23] Doxycycline Hyclate 100 mg [Vibramycin 100 MG] 100 mg PO DAILY 08/14/23 [History Confirmed 08/14/23] Finerenone [Kerendia] 10 mcg PO DAILY 08/14/23 [History Confirmed 08/14/23] Gabapentin [Neurontin] 600 mg PO HS 08/14/23 [History Confirmed 08/14/23] HydrALAzine HCL 25 MG TAB [Apresoline 25 MG TABLET] 25 mg PO TID 08/14/23 [History Confirmed 08/14/23] Allergies/Adverse Reactions: Allergies Allergy/AdvReac Type Severity Reaction Status Date / Time No Known Drug Allergies Allergy Verified 07/10/23 12:25 - Past Medical History Past Medical History: Yes Neurological History: No Pertinent History ENT History: Cataracts Cardiac History: High Cholesterol, Hypertension Respiratory History: Sleep Apnea Endocrine Medical History: Diabetes Type II Musculoskelatal History: Osteoarthritis GI Medical History: No Pertinent History History: No Pertinent History Pyscho-Social History: No Pertinent History Male Reproductive Disorders: No Pertinent History - Past Surgical History Past Surgical History: Yes Neuro Surgical History: No Pertinent History Cardiac History: No Pertinent History Respiratory Surgery: No Pertinent History GI Surgical History: Appendectomy Genitourinary Surgical Hx: No Pertinent History Musculskeletal Surgical Hx: Orthopedic Surgery, Other Male Surgical History: No Pertinent History Other Surgical History: left knee, bilat big toe joints,back,vastectomy, colonoscopy - Social History Smoking Status: Former smoker Exposure to second hand smoke: No Alcohol: Occasionally Drug Use: none - Social Determinants of Health Will the patient participate in the screening: Yes Do you worry about a steady place to live?: No Do you have any problems with any of the following?: No known problems In the past 12 months,have you had to go without utilities?: No Have you or anyone in your house had to go without enough: No Transportation Issues: No Has anyone in your support network made you feel unsafe?: No Does the patient want assistance with any of the above?: No Physical Exam - Neuro Neurologic: Epicritic and protopathic (Absent) - Vascular Peripheral Pulses: Posterior tibialis: 2+, Dorsalis-Pedis: 2+ Capillary Refill Time: < 3 seconds Hair Growth: Symmetrical and Bilateral Varicosities: Positive Edema: Pitting Edema Degree: 2+ (bilateral lower extremity, history of right lower extremity venous insufficiency ulceration recently healed) Skin: Supple, not atrophic (evidence of brawny edema and hemosiderin staining to the bilateral lower extremity) Skin Temperature: Warm to touch - Muscular Muscle Strength: 5/5 on all 4 quadrants Joint ROM: Limited ROM (to first metatarsophalangeal joint) Equinus: Gastorocnemius equinus - Narrative Narrative Physical Exam: Podiatry Physical Exam Results - Labs Lab/Micro Results: Lab Results-Last 24 Hours 08/14/23 08/14/23 08/14/23 Range/Units 11:36 16:12 20:54 WBC (4.0-10.5) x10^3/uL RBC (4.1-5.6) x10^6/uL Hgb (12.5-18.0) g/dL Hct (42-50) % MCV (78-100) fL MCH (26-32) pg MCHC (32-36) g/dL RDW (11.5-14.0) % Plt Count (150-450) x10^3/uL MPV (7.5-11.0) fL Gran % (36.0-66.0) % Immature Gran % (Auto) (0.00-0.4) % Nucleat RBC Rel Count (0.00-0.1) % Eos # (Auto) (0-0.5) x10^3/uL Immature Gran # (Auto) (0.00-0.03) x10^3u/L Absolute Lymphs (auto) (1.0-4.6) x10^3/uL Absolute Monos (auto) (0.0-1.3) x10^3/uL Absolute Nucleated RBC (0.00-0.01) x10^3u/L Lymphocytes % (24.0-44.0) % Monocytes % (0.0-12.0) % Eosinophils % (0.00-5.0) % Basophils % (0.0-0.4) % Absolute Granulocytes (1.4-6.9) x10^3/uL Basophils # (0-0.4) x10^3/uL Sodium (135-145) mmol/L Potassium (3.5-5.1) mmol/L Chloride (98-107) mmol/L Carbon Dioxide (22-30) mmol/L Anion Gap (5-15) MEQ/L BUN (9-20) mg/dL Creatinine (0.66-1.25) mg/dL Estimated GFR ML/MIN Glucose (74-106) mg/dL POC Glucometer 104 142 H 87 (74 to 106) mg/dL Calcium (8.4-10.2) mg/dL Total Bilirubin (0.2-1.3) mg/dL AST (17-59) U/L ALT (0-50) U/L Alkaline Phosphatase (38-126) U/L Serum Total Protein (6.3-8.2) g/dL Albumin (3.5-5.0) g/dL 08/15/23 08/15/23 08/15/23 Range/Units 04:37 04:37 06:46 WBC 12.6 H (4.0-10.5) x10^3/uL RBC 3.99 L (4.1-5.6) x10^6/uL Hgb 11.3 L (12.5-18.0) g/dL Hct 35.2 L (42-50) % MCV 88.2 (78-100) fL MCH 28.3 (26-32) pg MCHC 32.1 (32-36) g/dL RDW 13.3 (11.5-14.0) % Plt Count 368 (150-450) x10^3/uL MPV 10.2 (7.5-11.0) fL Gran % 61.7 (36.0-66.0) % Immature Gran % (Auto) 2.5 H (0.00-0.4) % Nucleat RBC Rel Count 0.0 (0.00-0.1) % Eos # (Auto) 0.43 (0-0.5) x10^3/uL Immature Gran # (Auto) 0.31 H (0.00-0.03) x10^3u/L Absolute Lymphs (auto) 2.78 (1.0-4.6) x10^3/uL Absolute Monos (auto) 1.21 (0.0-1.3) x10^3/uL Absolute Nucleated RBC 0.00 (0.00-0.01) x10^3u/L Lymphocytes % 22.2 L (24.0-44.0) % Monocytes % 9.6 (0.0-12.0) % Eosinophils % 3.4 (0.00-5.0) % Basophils % 0.6 (0.0-0.4) % Absolute Granulocytes 7.75 H (1.4-6.9) x10^3/uL Basophils # 0.07 (0-0.4) x10^3/uL Sodium 137 (135-145) mmol/L Potassium 4.6 (3.5-5.1) mmol/L Chloride 109 H (98-107) mmol/L Carbon Dioxide 21 L (22-30) mmol/L Anion Gap 12.0 (5-15) MEQ/L BUN 21 H (9-20) mg/dL Creatinine 1.62 H (0.66-1.25) mg/dL Estimated GFR 44.5 ML/MIN Glucose 80 (74-106) mg/dL POC Glucometer 68 L (74 to 106) mg/dL Calcium 8.7 (8.4-10.2) mg/dL Total Bilirubin 0.50 (0.2-1.3) mg/dL AST 30 (17-59) U/L ALT 39 (0-50) U/L Alkaline Phosphatase 57 (38-126) U/L Serum Total Protein 7.3 (6.3-8.2) g/dL Albumin 3.5 (3.5-5.0) g/dL Accuchecks Date 08/15/23 Date 08/14/23 Date 08/14/23 Time 07:10 Time 21:00 - Radiology Impressions Radiology Exams & Impressions: Radiology Procedures Category Date Time Status ARTERIAL BILAT LOWER EXTREMITY [US] Urgent Exams 08/14/23 12:16 Completed MRI LOWER EXT JOINT W/CONTRAST [MRI] Routine Exams 08/15/23 13:30 Ordered VENOUS BILATERAL EXTREMITY [US] Urgent Exams 08/14/23 12:16 Completed Assessment/Plan (1) SIRS (systemic inflammatory response syndrome) Current Visit: Yes Status: Acute Assessment & Plan: patient examination and evaluation Radiographs reviewed and discussed with patient demonstrating no subcutaneous or soft tissue emphysema at this time. Likely will plan for serial x-rays every other day to monitor for worsening if not responsive to IV antibiotics Venous Doppler obtained demonstrating negative for deep vein thrombosis to the bilateral lower extremity Arterial Dopplers obtained demonstrating adequate perfusion for healing potential MRI pending will be performed 08/15/2023 will review results and discussed with patient in regards to options White blood cells 13.5 on admission yesterday 08/13-> today patient is down to 12.6. At this time vancomycin and Zosyn with pharmacy dosing. Will monitor trend Given patient's history I do believe this is an isolated cellulitis event and would benefit from IV antibiotics and bedside debridement If MRI indicates that there is potential bone infection or infection surrounding hardware will proceed with extraction of implant washout of joint left open and plan for revision, fusion or amputation at the outpatient follow-up Will plan to provide compression therapy due to patient's venous insufficiency, awaiting MRI at the moment Following with you Thank you for the consult Code(s): R65.10 - SIRS OF NON-INFECTIOUS ORIGIN W/O ACUTE ORGAN DYSFUNCTION (2) Cellulitis of right lower extremity Current Visit: Yes Status: Acute Code(s): L03.115 - CELLULITIS OF RIGHT LOWER LIMB (3) Osteomyelitis Current Visit: Yes Status: Acute Assessment & Plan: Rule out MRI pendinglikely visualization obstructed due to artifact however can assess for possible abscess Code(s): M86.9 - OSTEOMYELITIS, UNSPECIFIED (4) Diabetic ulcer of right great toe Current Visit: Yes Status: Acute Code(s): E11.621 - TYPE 2 DIABETES MELLITUS WITH FOOT ULCER; L97.519 - NON-PRS CHRONIC ULCER OTH PRT RIGHT FOOT W UNSP SEVERITY
[2023-08-15] MEDS: Tricor 145 MG PO SCH (08:37)
[2023-08-15] MEDS: Zocor 10MG PO SCH (08:38)
[2023-08-15] MEDS ORDERED: Zestril 20 MG PO SCH (10:00)
[2023-08-15] MEDS ORDERED: FINERENONE 10 MG PO SCH (10:00)
[2023-08-15] MEDS ORDERED: NON-FORMULARY ITEM (Cyanocobalamin (Vitamin B-12) [Vitamin B-12] 5,000 MCG Capsule) PO SCH (10:00)
--- NOTE | 2023-08-15 11:38 | PCM.NOTE ---
Date and Time: 08/15/23 1132 Subjective Assessment: is a 73 year old male with a pmhx of HLD, HTN, SOUTH, and DMII patient of Dr. Brown directly admitted for diabetic foot ulcer to the right great toe that has failed outpatient treatment with doxycycline. Recent right foot and right great toe wound culture from 07/02/23 and 08/07/23 showing Enterobacter clocae complex and proteus mirabilis. Patient states the wound has been non- healin for approximately 8-9 months but over the past week week he has had subjective fevers, nausea, erythema, joint aches, and a "throbbing sensation" down the medial aspect of his right lower extremity. He did have a venous doppler on 08/07/23 which was negative for DVT at that time. Right ankle and foot Xrays from 08/14/23 with no acute findings. Discussed plan with Dr. Brown, plan is for IV abx with vanc/zosyn, MRI right foot, repeat venous doppler, and arterial doppler. He will follow patient. Lab findings done OP today show leukocytosis with WBC at 13.5, ESR of 109 and FLORENTINO with creat at 1.56. 08/15/23: Met with patient and spouse bedside. No further vomiting/fevers. Not much pain to RLE due to neuropathy. Discussed arterial/venous dopplers which were negative for DVT and noted adequate perfusion for healing. WBC is improved today at 12.6, creat level elevated at 1.62. MRI scheduled for today. Podiatry following, agree with plan for continued antibiotics and possible debridement pending MRI results. - Review of Systems Constitutional: No Symptoms Eyes: No Symptoms Ears, Nose, & Throat: No Symptoms Respiratory: No Symptoms Cardiac: Edema (BLE edema +2 pitting) Abdominal/Gastrointestinal: No Symptoms Genitourinary Symptoms: No Symptoms Musculoskeletal: No Symptoms Skin: Cellulitis, Skin Lesions (right great toe) Neurological: No Symptoms Psychological: No Symptoms Endocrine: No Symptoms Hematologic/Lymphatic: No Symptoms Immunological/Allergic: No Symptoms Objective Exam General Appearance: no apparent distress Neurologic Exam: alert, oriented x 3, cooperative Skin Exam: other (Right great toe ulceration covered with dressing/ surrounding erythema/edema) Wound Assessment: Skin/Wound Assessment Wound/Incision Assessment Start: 08/14/23 11:28 Text: Status: Active Freq: Q6H Protocol: Document 08/15/23 08:00 AR (Rec: 08/15/23 10:28 AR [id number]) Wound/Incision Assessment Right Foot Wound Assessment Shift Assessment Wound Type cellulitis/ulcer Drainage Amount Minimal Comment min drainage noted Wound Photo Photo Taken Yes Comment: in chart Eye Exam: PERRL Ears, Nose, Throat Exam: normal ENT inspection Neck Exam: normal inspection Respiratory Exam: normal breath sounds, lungs clear Cardiovascular Exam: regular rate/rhythm, normal heart sounds Gastrointestinal/Abdomen Exam: soft, normal bowel sounds Extremity Exam: inflammation, pedal edema, swelling Back Exam: normal inspection Male Genitalia Exam: deferred Rectal Exam: deferred Objective Data Vital Signs: Vital Signs - 24 hr Temp Pulse Resp BP Pulse Ox 08/15/23 11:18 98 F 82 18 136/69 97 08/15/23 07:10 96.1 F 72 16 167/70 98 08/15/23 04:00 64 16 08/15/23 00:00 98.0 F 72 18 149/65 95 08/14/23 20:00 99.4 F 75 19 152/70 96 08/14/23 16:00 99.1 F 76 18 171/77 93 L Pain Assessment - Last Documented Pain Intensity 0 Intake and Output: Intake & Output 08/12/23 08/13/23 08/14/23 08/15/23 11:59 11:59 11:59 11:59 Intake Total 480 Balance 480 Weight 126.552 kg 124.8 kg Lab Results: Lab Results-Last 24 Hours 08/14/23 08/14/23 08/14/23 Range/Units 11:36 16:12 20:54 WBC (4.0-10.5) x10^3/uL RBC (4.1-5.6) x10^6/uL Hgb (12.5-18.0) g/dL Hct (42-50) % MCV (78-100) fL MCH (26-32) pg MCHC (32-36) g/dL RDW (11.5-14.0) % Plt Count (150-450) x10^3/uL MPV (7.5-11.0) fL Gran % (36.0-66.0) % Immature Gran % (Auto) (0.00-0.4) % Nucleat RBC Rel Count (0.00-0.1) % Eos # (Auto) (0-0.5) x10^3/uL Immature Gran # (Auto) (0.00-0.03) x10^3u/L Absolute Lymphs (auto) (1.0-4.6) x10^3/uL Absolute Monos (auto) (0.0-1.3) x10^3/uL Absolute Nucleated RBC (0.00-0.01) x10^3u/L Lymphocytes % (24.0-44.0) % Monocytes % (0.0-12.0) % Eosinophils % (0.00-5.0) % Basophils % (0.0-0.4) % Absolute Granulocytes (1.4-6.9) x10^3/uL Basophils # (0-0.4) x10^3/uL Sodium (135-145) mmol/L Potassium (3.5-5.1) mmol/L Chloride (98-107) mmol/L Carbon Dioxide (22-30) mmol/L Anion Gap (5-15) MEQ/L BUN (9-20) mg/dL Creatinine (0.66-1.25) mg/dL Estimated GFR ML/MIN Glucose (74-106) mg/dL POC Glucometer 104 142 H 87 (74 to 106) mg/dL Calcium (8.4-10.2) mg/dL Total Bilirubin (0.2-1.3) mg/dL AST (17-59) U/L ALT (0-50) U/L Alkaline Phosphatase (38-126) U/L Serum Total Protein (6.3-8.2) g/dL Albumin (3.5-5.0) g/dL 08/15/23 08/15/23 08/15/23 Range/Units 04:37 04:37 06:46 WBC 12.6 H (4.0-10.5) x10^3/uL RBC 3.99 L (4.1-5.6) x10^6/uL Hgb 11.3 L (12.5-18.0) g/dL Hct 35.2 L (42-50) % MCV 88.2 (78-100) fL MCH 28.3 (26-32) pg MCHC 32.1 (32-36) g/dL RDW 13.3 (11.5-14.0) % Plt Count 368 (150-450) x10^3/uL MPV 10.2 (7.5-11.0) fL Gran % 61.7 (36.0-66.0) % Immature Gran % (Auto) 2.5 H (0.00-0.4) % Nucleat RBC Rel Count 0.0 (0.00-0.1) % Eos # (Auto) 0.43 (0-0.5) x10^3/uL Immature Gran # (Auto) 0.31 H (0.00-0.03) x10^3u/L Absolute Lymphs (auto) 2.78 (1.0-4.6) x10^3/uL Absolute Monos (auto) 1.21 (0.0-1.3) x10^3/uL Absolute Nucleated RBC 0.00 (0.00-0.01) x10^3u/L Lymphocytes % 22.2 L (24.0-44.0) % Monocytes % 9.6 (0.0-12.0) % Eosinophils % 3.4 (0.00-5.0) % Basophils % 0.6 (0.0-0.4) % Absolute Granulocytes 7.75 H (1.4-6.9) x10^3/uL Basophils # 0.07 (0-0.4) x10^3/uL Sodium 137 (135-145) mmol/L Potassium 4.6 (3.5-5.1) mmol/L Chloride 109 H (98-107) mmol/L Carbon Dioxide 21 L (22-30) mmol/L Anion Gap 12.0 (5-15) MEQ/L BUN 21 H (9-20) mg/dL Creatinine 1.62 H (0.66-1.25) mg/dL Estimated GFR 44.5 ML/MIN Glucose 80 (74-106) mg/dL POC Glucometer 68 L (74 to 106) mg/dL Calcium 8.7 (8.4-10.2) mg/dL Total Bilirubin 0.50 (0.2-1.3) mg/dL AST 30 (17-59) U/L ALT 39 (0-50) U/L Alkaline Phosphatase 57 (38-126) U/L Serum Total Protein 7.3 (6.3-8.2) g/dL Albumin 3.5 (3.5-5.0) g/dL 08/15/23 08/15/23 Range/Units 08:35 11:02 WBC (4.0-10.5) x10^3/uL RBC (4.1-5.6) x10^6/uL Hgb (12.5-18.0) g/dL Hct (42-50) % MCV (78-100) fL MCH (26-32) pg MCHC (32-36) g/dL RDW (11.5-14.0) % Plt Count (150-450) x10^3/uL MPV (7.5-11.0) fL Gran % (36.0-66.0) % Immature Gran % (Auto) (0.00-0.4) % Nucleat RBC Rel Count (0.00-0.1) % Eos # (Auto) (0-0.5) x10^3/uL Immature Gran # (Auto) (0.00-0.03) x10^3u/L Absolute Lymphs (auto) (1.0-4.6) x10^3/uL Absolute Monos (auto) (0.0-1.3) x10^3/uL Absolute Nucleated RBC (0.00-0.01) x10^3u/L Lymphocytes % (24.0-44.0) % Monocytes % (0.0-12.0) % Eosinophils % (0.00-5.0) % Basophils % (0.0-0.4) % Absolute Granulocytes (1.4-6.9) x10^3/uL Basophils # (0-0.4) x10^3/uL Sodium (135-145) mmol/L Potassium (3.5-5.1) mmol/L Chloride (98-107) mmol/L Carbon Dioxide (22-30) mmol/L Anion Gap (5-15) MEQ/L BUN (9-20) mg/dL Creatinine (0.66-1.25) mg/dL Estimated GFR ML/MIN Glucose (74-106) mg/dL POC Glucometer 91 132 H (74 to 106) mg/dL Calcium (8.4-10.2) mg/dL Total Bilirubin (0.2-1.3) mg/dL AST (17-59) U/L ALT (0-50) U/L Alkaline Phosphatase (38-126) U/L Serum Total Protein (6.3-8.2) g/dL Albumin (3.5-5.0) g/dL Radiology Exams: Radiology Procedures Category Date Time Status ARTERIAL BILAT LOWER EXTREMITY [US] Urgent Exams 08/14/23 12:16 Completed MRI LOWER EXT JOINT W/CONTRAST [MRI] Routine Exams 08/15/23 13:30 Ordered PICC LINE PLACEMENT Routine Exams 08/15/23 11:24 Ordered VENOUS BILATERAL EXTREMITY [US] Urgent Exams 08/14/23 12:16 Completed Multi-Disciplinary Progress Notes: Multi-Disciplinary Progress Notes 08/15/23 10:47 Case Management Note by Annetta Sweeney S/W PATIENT-HE CONTINUES TO DENY ANY NEW NEEDS AT TIME OF DC. S/W BRITTA- HE REPORTS PLAN OF TREATMENT DEPENDS ON RESULTS FROM MRI LATER TODAY. EITHER WAY- PATIENT WILL NEED IV ANTIBIOTICS AT DC. HE WOULD LIKE PATIENT TO HAVE A PICC LINE PLACED. S/W PATIENT ABOUT INFUSION OPTIONS- HE PREFERS TO COME TO [facility] FOR HIS ANTIBIOTICS, EVEN IF ORDERED TWICE A DAY. HE REPORTS HE HAS NO TROUBLE WITH TRANSPORTATION AND LIVES CLOSE ENOUGH TO MAKE THE DRIVE NEEDED. THIS WRITING MANAGER DID DISCUSS THE OPTION OF A POSSIBLE SWINGBED WITH PATIENT IF ANT IBIOTICS ARE MORE THAN ONCE A DAY. CURRENTLY- PATIENT DOES NOT WISH TO DO SO BUT WILL RECONSIDER IF THINGS GET MORE COMPLICATED AFTER MRI RESULTS. Initialized on 08/15/23 10:47 - END OF NOTE 08/14/23 13:43 Pharmacy Note by Urban Lopez Request to Dose Zosyn for renal function crc l = 44 ml/min zosyn 3.375 gm q6h nacho Initialized on 08/14/23 13:43 - END OF NOTE 08/14/23 13:43 Pharmacy Note by Urban Lopez Pharmacokinetic dosing service Date: 08/14/2023 Time: 1300 Objective: Patient: Donald Ulloa Floor: 106 Age: 73 yo Serum creatinine: 1.56 mg/dL Height: 71 Inches Weight (kg): 124 Diagnosis: Right Lower Leg Cellulitis Relevant medical/social history: diabetes Cultures and sensitivities: june e coli and proteus july enterobacter cloacea Other labs: wbc = 13.5 Assessment: IBW (kg): 75.30 Dosing wt(kg): 124 Estimated Creatinine clearance (ml/min): 44.9 CRCL method: Cockcroft and Gault using ibw(default). Drug selected: Vancomycin Loading dose (mg): 0 Vd (liters): 105.4 (factor used: 0.85 L/kg) Brown (hr-1): 0.042 Half life (hrs): 16.50 Recommended dose: 2000 mg Interval: 24 hrs Infusion time (hrs): 2.0 Predicted peak (mcg/mL): 28.7 Predicted trough (mcg/mL): 11.39 Total body weight is being used for vancomycin dosing. Renal function is stable [ ] /unstable [ xxx ] Recommendations: Give Vancomycin 2000 mg q 24 hrs with an expected Cpeak of 28.7 mcg/ml and an expected Ctrough of 11.39 mcg/ml Renal dosing of other antibiotics (review renal dosing of other medications and list guidelines here): elizabeth Thank you for the consult, will continue to follow. Signature: Urban Lopez VANCOMYCIN TROUGH 08/17/23 @ 0930 Initialized on 08/14/23 13:43 - END OF NOTE Assessment/Plan (1) Diabetic ulcer of right great toe Current Visit: Yes Status: Acute Assessment & Plan: -Discussed case with Dr. Plunkett, plan for vanc/eddien -podiatry to follow to determine if surgical intervention needed -culture drainage -elevate affected limb -MRI right foot -scheduled for 08/15/23 -Venous/arterial doppler 08/14: -Reviewed podiatry documentation, agree with plan for MRI right foot scheduled for today - possible debridement "If MRI indicates that there is potential bone infection or infection surrounding hardware will proceed with extraction of implant washout of joint left open and plan for revision, fusion or amputation at the outpatient follow-up" Code(s): E11.621 - TYPE 2 DIABETES MELLITUS WITH FOOT ULCER; L97.519 - NON-PRS CHRONIC ULCER OTH PRT RIGHT FOOT W UNSP SEVERITY (2) HTN (hypertension) Current Visit: Yes Status: Acute Assessment & Plan: -continue home meds Code(s): I10 - ESSENTIAL (PRIMARY) HYPERTENSION (3) HLD (hyperlipidemia) Current Visit: Yes Status: Acute Assessment & Plan: -continue statin Code(s): E78.5 - HYPERLIPIDEMIA, UNSPECIFIED (4) Type 2 diabetes mellitus Current Visit: Yes Status: Acute Assessment & Plan: -SSI/glargine -A1c -ADA diet #FLORENTINO -Patient follows with Dr. Ma -Baseline creat around 1.1-1.3 -Gentle hydration -Hold lisinopril -AVOID NSAIDS/JAMES/ARB/Diuretics Code(s): E11.621 - TYPE 2 DIABETES MELLITUS WITH FOOT ULCER; L97.519 - NON-PRS CHRONIC ULCER OTH PRT RIGHT FOOT W UNSP SEVERITY (2) HTN (hypertension) Current Visit: Yes Status: Acute Code(s): I10 - ESSENTIAL (PRIMARY) HYPERTENSION (3) HLD (hyperlipidemia) Current Visit: Yes Status: Acute Code(s): E78.5 - HYPERLIPIDEMIA, UNSPECIFIED (4) Type 2 diabetes mellitus Current Visit: Yes Status: Acute
[2023-08-15 13:03] LABS: INR 1.05 (0.8-3.0); PROTIME 11.4 SECONDS (9.4-12.5)
--- NOTE | 2023-08-15 13:52 | XRAY ---
Indication: Right foot infection. Sagittal, coronal, and axial MRI right forefoot performed without contrast using T1, T2, and STIR sequences. Poor renal function/GFR. Comparison: July 03, 2023 Study is degraded by motion artifact. Again 1st MTP arthroplasty with hardware ferromagnetic artifact. Interval worsening mild diffuse anterior subcutaneous soft tissue swelling/edema. No focal solid/cystic soft tissue mass or abnormal fluid collection. Grossly stable diffuse distal 1st phalanx bone edema signal. Proximal 1st phalanx demonstrates new bone edema signal distally. Grossly stable 2nd-4th tarsometatarsal degenerative changes. Elsewhere no acute fracture, suspicious bony lesions, or abnormal bone marrow signal. Impression: 1. Diffuse motion artifact limits exam. 2. Again 1st MTP arthroplasty with hardware ferromagnetic artifact. 3. Worsening diffuse anterior subcutaneous soft tissue swelling/edema presumed infectious based on clinical history. 4. Again diffuse distal 1st phalanx and new proximal 1st phalanx bone edema signal. Again rule out osteomyelitis. 5. Stable incidental 2nd-4th tarsometatarsal degenerative changes.
--- NOTE | 2023-08-15 14:48 | XRAY ---
Indication: Ultrasound guidance for PICC line placement. Initial sonographic imaging of the right upper extremity was performed for localization of patent veins. A patent basilic vein identified above the elbow. Ultrasound guidance was then used for PICC line insertion. Full PICC line insertion is reported separately.
--- NOTE | 2023-08-15 14:50 | XRAY ---
Indication: Antibiotic infusion. Long-term IV access and therapy for right foot cellulitis with osteomyelitis. Informed consent obtained. Patient was placed on the fluoroscopic table in a supine position. Initial sonographic imaging of the right upper extremity was performed for localization of patent veins. The right upper extremity was then prepped and draped in sterile fashion. Tourniquet applied. 1% lidocaine plain used for local anesthesia. Using ultrasound guidance and a micropuncture needle, a basilic vein above the elbow was successfully percutaneously cannulized. A floppy tip 0.018 guidewire inserted. Tourniquet released. Needle was exchanged for a 5 Indian dilator peel away sheath catheter. Ultimately a 5 Indian double-lumen PICC line was inserted over a longer 0.018 guidewire. Catheter and guidewire further advanced and positioned in the distal SVC using fluoroscopic guidance. Guidewire removed. Both ports flushed with heparinized saline. Catheter was secured. Postoperative instructions and orders given. Patient discharged in good condition. Impression: Technically successful right upper extremity PICC line placement using ultrasound and fluoroscopic guidance. No immediate complications. Approximately 2 cc blood loss. Approximately 0.4 minute of fluoroscopy used. Catheter length is 42 cm.
[2023-08-16 06:05] LABS: Absolute Neutrophil Ct (ANC) 4.83 x10^3/uL (1.4-6.9); BASOPHIL % 0.8 % (0.0-0.4); Basophil (Absolute #) 0.07 x10^3/uL (0-0.4); Eosinophil % 4.7 % (0.00-5.0); Hematocrit 37.5 % (42-50); Hemoglobin 11.9 g/dL (12.5-18.0); IMMATURE GRAN # 0.23 x10^3u/L (0.00-0.03); IMMATURE GRAN % 2.7 % (0.00-0.4); Lymphocyte (Absolute #) 2.11 x10^3/uL (1.0-4.6); Lymphocytes % 24.7 % (24.0-44.0); Mean Cell Volume 89.7 fL (78-100); Mean Corpuscular Hemoglobin 28.5 pg (26-32); Mean Corpuscular Hgb Concent. 31.7 g/dL (32-36); Mean Platelet Volume 9.8 fL (7.5-11.0); Monocyte (Absolute #) 0.91 x10^3/uL (0.0-1.3); Monocytes % 10.6 % (0.0-12.0); Neutrophil % 56.5 % (36.0-66.0); Platelet Count 353 x10^3/uL (150-450); Red Blood Count 4.18 x10^6/uL (4.1-5.6); Red Cell Distribution Width 13.2 % (11.5-14.0); White Blood Count 8.6 x10^3/uL (4.0-10.5)
[2023-08-16 06:24] LABS: ALBUMIN 3.7 g/dL (3.5-5.0); ANION GAP 12.1 MEQ/L (5-15); BILIRUBIN,TOTAL 0.6 mg/dL (0.2-1.3); Calcium 9.1 mg/dL (8.4-10.2); Creatinine 1 1.26 mg/dL (0.66-1.25); EST GLOMERULAR FILTRATION RATE 60.2 ML/MIN; Potassium 4.4 mmol/L (3.5-5.1); Total Protein 7.4 g/dL (6.3-8.2)
--- NOTE | 2023-08-16 12:06 | PCM.DS ---
Discharge Summary Date of Admission: 08/14/23 11:05 Date of Discharge: 08/16/23 Admitting Physician: ANTONIETA FUENTES MD Primary Care Provider: NASRA SERVIN Allergies Allergies No Known Drug Allergies Allergy (Verified 07/10/23 12:25) Hospital Summary - Hospital Course Hospital Course: is a 73 year old male with a pmhx of HLD, HTN, SOUTH, and DMII patient of Dr. Brown directly admitted for diabetic foot ulcer to the right great toe that has failed outpatient treatment with doxycycline. Recent right foot and right great toe wound culture from 07/02/23 and 08/07/23 showing Enterobacter clocae complex and proteus mirabilis. Patient states the wound has been non- healing for approximately 8-9 months but over the past week week he has had s ubjective fevers, nausea, erythema, joint aches, and a "throbbing sensation" down the medial aspect of his right lower extremity. He did have a venous doppler on 08/07/23 which was negative for DVT at that time. Repeat venous and arterial dopplers negative for DVT and noted adequate perfusion for healing. Right ankle and foot Xrays from 08/14/23 with no acute findings. Kidney function now at baseline. Patient received Vanc/zosyn while IP. Will discharge home with IV Invanz x 28 days as OP. He will follow with podiatry and Dr. Villalta. Patient to start IV abx tomorrow at 8 am. Patient is agreeable to plan and ready for discharge. All questions and concerns have been addressed. Discharge Note Latest Assessment & Plan 1) Diabetic ulcer of right great toe Current Visit: Yes Status: Acute Assessment & Plan: -Discussed case with Dr. Callejas, plan for vanc/zosyn -podiatry to follow to determine if surgical intervention needed -culture drainage -elevate affected limb -MRI right foot -scheduled for 08/15/23 -Venous/arterial doppler 08/14: -Reviewed podiatry documentation, agree with plan for MRI right foot scheduled for today - possible debridement "If MRI indicates that there is potential bone infection or infection surrounding hardware will proceed with extraction of implant washout of joint left open and plan for revision, fusion or amputation at the outpatient follow-up" 08/15: -Discussed case with Dr. Callejas, plan for OP IV Invanz x 28 days, this has been set up and to start tomorrow - pt to follow with podiatry and Dr. Villalta as OP Code(s): E11.621 - TYPE 2 DIABETES MELLITUS WITH FOOT ULCER; L97.519 - NON-PRS CHRONIC ULCER OTH PRT RIGHT FOOT W UNSP SEVERITY (2) HTN (hypertension) Current Visit: Yes Status: Acute Assessment & Plan: -continue home meds Code(s): I10 - ESSENTIAL (PRIMARY) HYPERTENSION (3) HLD (hyperlipidemia) Current Visit: Yes Status: Acute Assessment & Plan: -continue statin Code(s): E78.5 - HYPERLIPIDEMIA, UNSPECIFIED (4) Type 2 diabetes mellitus Current Visit: Yes Status: Acute Assessment & Plan: -SSI/glargine -A1c -ADA diet #FLORENTINO -Patient follows with Dr. Ma -Baseline creat around 1.1-1.3 -Gentle hydration -Hold lisinopril -AVOID NSAIDS/JAMES/ARB/Diuretics 08/15: -at baseline I spent 35 minutes [id number] with the patient on the day of discharge performing discharge exam, discussing hospital stay and discharge instructions with patient and caregivers, preparation of discharge records, prescriptions & referral forms and addressing any questions/concerns the patient had as documented above. - Vitals & Intake/Output Vital Signs: Vital Signs Temperature 97.5 F 08/16/23 08:00 Pulse Rate 86 08/16/23 08:00 Respiratory Rate 20 08/16/23 08:00 Blood Pressure 175/78 08/16/23 08:00 O2 Sat by Pulse Oximetry 86 L 08/16/23 08:00 Intake & Output: Intake & Output 08/14/23 08/15/23 08/16/23 08/17/23 11:59 11:59 11:59 11:59 Intake Total 480 3766 Balance 480 3766 Weight 126.552 kg 124.8 kg 124.8 kg - Lab Result Diagrams: 08/16/23 06:00 08/16/23 06:00 Lab Results-Last 24 Hrs: Lab Results-Last 24 Hours 08/15/23 08/15/23 08/15/23 Range/Units 11:45 11:45 16:01 WBC (4.0-10.5) x10^3/uL RBC (4.1-5.6) x10^6/uL Hgb (12.5-18.0) g/dL Hct (42-50) % MCV (78-100) fL MCH (26-32) pg MCHC (32-36) g/dL RDW (11.5-14.0) % Plt Count (150-450) x10^3/uL MPV (7.5-11.0) fL Gran % (36.0-66.0) % Immature Gran % (Auto) (0.00-0.4) % Nucleat RBC Rel Count (0.00-0.1) % Eos # (Auto) (0-0.5) x10^3/uL Immature Gran # (Auto) (0.00-0.03) x10^3u/L Absolute Lymphs (auto) (1.0-4.6) x10^3/uL Absolute Monos (auto) (0.0-1.3) x10^3/uL Absolute Nucleated RBC (0.00-0.01) x10^3u/L Lymphocytes % (24.0-44.0) % Monocytes % (0.0-12.0) % Eosinophils % (0.00-5.0) % Basophils % (0.0-0.4) % Absolute Granulocytes (1.4-6.9) x10^3/uL Basophils # (0-0.4) x10^3/uL PT 11.4 (9.4-12.5) SECONDS INR 1.05 (0.8-3.0) APTT 34.5 (25.1-36.5) SECONDS Sodium (135-145) mmol/L Potassium (3.5-5.1) mmol/L Chloride (98-107) mmol/L Carbon Dioxide (22-30) mmol/L Anion Gap (5-15) MEQ/L BUN (9-20) mg/dL Creatinine (0.66-1.25) mg/dL Estimated GFR ML/MIN Glucose (74-106) mg/dL POC Glucometer 118 H (74 to 106) mg/dL Calcium (8.4-10.2) mg/dL Total Bilirubin (0.2-1.3) mg/dL AST (17-59) U/L ALT (0-50) U/L Alkaline Phosphatase (38-126) U/L Serum Total Protein (6.3-8.2) g/dL Albumin (3.5-5.0) g/dL 08/15/23 08/16/23 08/16/23 Range/Units 22:02 06:00 06:00 WBC 8.6 (4.0-10.5) x10^3/uL RBC 4.18 (4.1-5.6) x10^6/uL Hgb 11.9 L (12.5-18.0) g/dL Hct 37.5 L (42-50) % MCV 89.7 (78-100) fL MCH 28.5 (26-32) pg MCHC 31.7 L (32-36) g/dL RDW 13.2 (11.5-14.0) % Plt Count 353 (150-450) x10^3/uL MPV 9.8 (7.5-11.0) fL Gran % 56.5 (36.0-66.0) % Immature Gran % (Auto) 2.7 H (0.00-0.4) % Nucleat RBC Rel Count 0.0 (0.00-0.1) % Eos # (Auto) 0.40 (0-0.5) x10^3/uL Immature Gran # (Auto) 0.23 H (0.00-0.03) x10^3u/L Absolute Lymphs (auto) 2.11 (1.0-4.6) x10^3/uL Absolute Monos (auto) 0.91 (0.0-1.3) x10^3/uL Absolute Nucleated RBC 0.00 (0.00-0.01) x10^3u/L Lymphocytes % 24.7 (24.0-44.0) % Monocytes % 10.6 (0.0-12.0) % Eosinophils % 4.7 (0.00-5.0) % Basophils % 0.8 (0.0-0.4) % Absolute Granulocytes 4.83 (1.4-6.9) x10^3/uL Basophils # 0.07 (0-0.4) x10^3/uL PT (9.4-12.5) SECONDS INR (0.8-3.0) APTT (25.1-36.5) SECONDS Sodium 138 (135-145) mmol/L Potassium 4.4 (3.5-5.1) mmol/L Chloride 111 H (98-107) mmol/L Carbon Dioxide 19 L (22-30) mmol/L Anion Gap 12.1 (5-15) MEQ/L BUN 15 (9-20) mg/dL Creatinine 1.26 H (0.66-1.25) mg/dL Estimated GFR 60.2 ML/MIN Glucose 90 (74-106) mg/dL POC Glucometer 99 (74 to 106) mg/dL Calcium 9.1 (8.4-10.2) mg/dL Total Bilirubin 0.60 (0.2-1.3) mg/dL AST 41 (17-59) U/L ALT 57 H (0-50) U/L Alkaline Phosphatase 61 (38-126) U/L Serum Total Protein 7.4 (6.3-8.2) g/dL Albumin 3.7 (3.5-5.0) g/dL 08/16/23 Range/Units 08:16 WBC (4.0-10.5) x10^3/uL RBC (4.1-5.6) x10^6/uL Hgb (12.5-18.0) g/dL Hct (42-50) % MCV (78-100) fL MCH (26-32) pg MCHC (32-36) g/dL RDW (11.5-14.0) % Plt Count (150-450) x10^3/uL MPV (7.5-11.0) fL Gran % (36.0-66.0) % Immature Gran % (Auto) (0.00-0.4) % Nucleat RBC Rel Count (0.00-0.1) % Eos # (Auto) (0-0.5) x10^3/uL Immature Gran # (Auto) (0.00-0.03) x10^3u/L Absolute Lymphs (auto) (1.0-4.6) x10^3/uL Absolute Monos (auto) (0.0-1.3) x10^3/uL Absolute Nucleated RBC (0.00-0.01) x10^3u/L Lymphocytes % (24.0-44.0) % Monocytes % (0.0-12.0) % Eosinophils % (0.00-5.0) % Basophils % (0.0-0.4) % Absolute Granulocytes (1.4-6.9) x10^3/uL Basophils # (0-0.4) x10^3/uL PT (9.4-12.5) SECONDS INR (0.8-3.0) APTT (25.1-36.5) SECONDS Sodium (135-145) mmol/L Potassium (3.5-5.1) mmol/L Chloride (98-107) mmol/L Carbon Dioxide (22-30) mmol/L Anion Gap (5-15) MEQ/L BUN (9-20) mg/dL Creatinine (0.66-1.25) mg/dL Estimated GFR ML/MIN Glucose (74-106) mg/dL POC Glucometer 92 (74 to 106) mg/dL Calcium (8.4-10.2) mg/dL Total Bilirubin (0.2-1.3) mg/dL AST (17-59) U/L ALT (0-50) U/L Alkaline Phosphatase (38-126) U/L Serum Total Protein (6.3-8.2) g/dL Albumin (3.5-5.0) g/dL Micro Results-Entire Visit: Accuchecks Date 08/16/23 Date 08/15/23 Time 08:22 Time 16:20 - Radiology Exams Ordered Rad Exams-Entire Visit: Radiology Procedures Category Date Time Status ARTERIAL BILAT LOWER EXTREMITY [US] Urgent Exams 08/14/23 12:16 Completed GUIDE FOR VASCULAR ACCESS [US] Routine Exams 08/15/23 12:11 Completed MRI LOW EXT JOINT W/O CONTRAST [MRI] Routine Exams 08/15/23 13:30 Completed PICC LINE PLACEMENT Routine Exams 08/15/23 11:24 Completed VENOUS BILATERAL EXTREMITY [US] Urgent Exams 08/14/23 12:16 Completed Discharge Exam General Appearance: no apparent distress Neurologic Exam: alert, oriented x 3, cooperative Eye Exam: PERRL Ears, Nose, Throat Exam: normal ENT inspection Neck Exam: normal inspection Respiratory Exam: normal breath sounds, lungs clear Cardiovascular Exam: regular rate/rhythm, normal heart sounds Gastrointestinal/Abdomen Exam: soft, normal bowel sounds Male Genitalia Exam: deferred Rectal Exam: deferred Extremity Exam: other (Right great toe ulcer covered with dressing surrounding erythema/edema - see wound assessment) Skin Exam: warm, dry Wound Assessment: Skin/Wound Assessment Wound/Incision Assessment Start: 08/14/23 11:28 Text: Status: Active Freq: Q6H Protocol: Document 08/16/23 08:00 AR (Rec: 08/16/23 10:05 AR [id number]) Wound/Incision Assessment Right Foot Wound Assessment Shift Assessment Wound Type cellulitis/ulcer Dressing Status Changed Comment DRESSING CHANGED PER DR CALLEJAS THIS AM Wound Photo Photo Taken Yes Comment: in chart Final Diagnosis/Problem List - Final Discharge Diagnosis/Problem (1) Diabetic ulcer of right great toe Current Visit: Yes Status: Acute Code(s): E11.621 - TYPE 2 DIABETES MELLITUS WITH FOOT ULCER; L97.519 - NON-PRS CHRONIC ULCER OTH PRT RIGHT FOOT W UNSP SEVERITY (2) HTN (hypertension) Current Visit: Yes Status: Chronic Code(s): I10 - ESSENTIAL (PRIMARY) HYPERTENSION (3) HLD (hyperlipidemia) Current Visit: Yes Status: Chronic Code(s): E78.5 - HYPERLIPIDEMIA, UNSPECIFIED (4) Type 2 diabetes mellitus Current Visit: Yes Status: Chronic - Discharge Disposition: Home, Self-Care Condition: Stable Prescriptions: Continue Gabapentin [Neurontin ] 400 mg PO BID Simvastatin 10 mg [Zocor 10MG] 10 mg PO DAILY Lisinopril 20 mg [Zestril 20 MG] 40 mg PO DAILY Insulin Glargine,Hum.rec.anlog [Keishaaglrenata Rodriguez U-100] 70 unit SQ HS Metformin HCl 500 mg [Glucophage 500 MG] 500 mg PO DAILY Semaglutide [Ozempic] 1 mg SQ WEEKLY Insulin Aspart (Niacinamide) [Fiasp 100 Unit/ml Vial] 20 unit SQ TIDWMEALS Fenofibrate 54 mg PO DAILY Cyanocobalamin (Vitamin B-12) [Vitamin B-12] 5,000 mg PO DAILY Gentamicin 0.1% Cream [Gentamicin Sulfate 0.1% Cream] 1 applic TOP TID PRN PRN Reason: Redness/Irritation HydrALAzine HCL 25 MG TAB [Apresoline 25 MG TABLET] 25 mg PO TID Finerenone [Kerendia] 10 mcg PO DAILY Gabapentin [Neurontin] 600 mg PO HS Dapagliflozin Propanediol [Farxiga] 10 mg PO DAILY Discontinued Doxycycline Hyclate 100 mg [Vibramycin 100 MG] 100 mg PO DAILY Additional Instructions: YOUR FIRST APPT FOR IV ANTIBIOTICS IS 08/17/23 AT 8:00 AM Follow up with: NASRA SERVIN NP [Primary Care Provider] -
[2023-08-16 12:25] VITALS: BP 164/79; PULSE 73; RESP 17; TEMP 97.7; O2SAT 98
[2023-08-17] MEDS ORDERED: TROUGH DRUG LEVELS IJ ONE (09:30)
--- NOTE | 2023-08-18 07:54 | PCM.NOTE ---
Date and Time: 08/18/23 0750 Subjective Assessment: Feeling better. at bedside. Signficant improvement of constitutional symptoms Physical Exam - Narrative Narrative Physical Exam: Podiatry Physical Exam Objective Data Vital Signs: Pain Assessment - Last Documented Pain Intensity 0 Intake and Output: Intake & Output 08/15/23 08/16/23 08/17/23 08/18/23 11:59 11:59 11:59 11:59 Intake Total 480 3766 Balance 480 3766 Weight 124.8 kg 124.8 kg Assessment/Plan (1) Cellulitis of right lower extremity Status: Acute Assessment & Plan: RLE cellulitis significantly improved. Drainage has stopped IV vancomycin/zosyn combination now. Discussed with pharmacy switch to IV ertapenem on d/c which bacteria is sensitive. Wound debrided Dressing changed OK for d/c follow up within 1 week of d/c Code(s): L03.115 - CELLULITIS OF RIGHT LOWER LIMB (2) Osteomyelitis Status: Acute Code(s): M86.9 - OSTEOMYELITIS, UNSPECIFIED (3) Diabetic ulcer of right great toe Status: Acute Code(s): E11.621 - TYPE 2 DIABETES MELLITUS WITH FOOT ULCER; L97.519 - NON-PRS CHRONIC ULCER OTH PRT RIGHT FOOT W UNSP SEVERITY
== END 2023-08-16 12:41 | disposition home or self-care (01) | DRG 638 ==
LOC: OBSVTOIN 11:05 → MED SURG 11:05 → UNDOADMOB 11:17
PROVIDERS: ADMIT Internal Medicine; ATTEND Internal Medicine
DX: E11.621 Type 2 diabetes mellitus with foot ulcer (principal); L03.115 Cellulitis of right lower limb; R65.10 Systemic inflammatory response syndrome (SIRS) of non-infectious origin without acute organ dysfunction; M86.9 Osteomyelitis, unspecified; E11.42 Type 2 diabetes mellitus with diabetic polyneuropathy; I10 Essential (primary) hypertension; E78.5 Hyperlipidemia, unspecified; L97.519 Non-pressure chronic ulcer of other part of right foot with unspecified severity; N17.9 Acute kidney failure, unspecified; Z79.899 Other long term (current) drug therapy
CPT/HCPCS: 11042; 29580; 36415; 36573; 73721; 76937; 77001; 80053; 82947; 85025; 85610; 85730; 93925; 93970; Q3014; 73610; 73630; 83036; 85652; 86140; 99215; 99222; 99232; C1769; J1642; J1817; A9270-GY; J3370

== ENCOUNTER 2023-08-28 12:47 | Day surgery (SDC) | payer MEDICARE ==
[~2023-08-28 12:47] MED LIST changes: -Lactated Ringers 1,000 ML IV ONE; +Marcaine Mpf 0.5% Vial 30 Ml ONE; -Sensorcaine 0.25% 10 ML ONE; +Xylocaine 1% Vial 30 ML PF IJ ONE
[2023-08-28] MEDS ORDERED: Tobramycin 1.2 GM Injection IJ ONE (12:48)
[2023-08-28] MEDS ORDERED: Sodium Chloride 0.9(Preservative Free) 10 ML IJ ONE (12:48)
[2023-08-28] MEDS: CEFAZOLIN 2 GM-D5W BAG** 2 GM/50 ML ML IV SCH (13:13)
[2023-08-28] MEDS: Lactated Ringers 1,000 ML IV SCH (13:13)
[2023-08-28] MEDS: Sodium Chloride 0.9% 10 ML FLUSH Syringe PICC PRN (13:15)
[2023-08-28 13:51] LABS: Hematocrit 38.1 % (40.1-51.0); Hemoglobin 11.9 g/dL (13.7-17.5); Mean Cell Volume 88.4 fL (79.0-92.2); Mean Corpuscular Hemoglobin 27.6 pg (25.7-32.2); Mean Corpuscular Hgb Concent. 31.2 g/dL (32.3-36.5); Mean Platelet Volume 10.3 fL (9.4-12.4); Platelet Count 298 x10^3/uL (163-337); Red Blood Count 4.31 x10^6/uL (4.63-6.08); Red Cell Distribution Width 12.7 % (11.6-14.4); White Blood Count 8.6 x10^3/uL (4.23-9.07)
[2023-08-28 14:05] LABS: ALBUMIN 3.8 g/dL (3.5-5.0); ANION GAP 12.4 MEQ/L (5-15); BILIRUBIN,TOTAL 0.4 mg/dL (0.2-1.3); Calcium 9.6 mg/dL (8.4-10.2); Creatinine 1 1.09 mg/dL (0.66-1.25); EST GLOMERULAR FILTRATION RATE 71.7 ML/MIN; Potassium 4.2 mmol/L (3.5-5.1); Total Protein 7.7 g/dL (6.3-8.2)
[2023-08-28] MEDS: Versed 2 MG/2 ML Injection IV ONE (14:17)
[2023-08-28 16:44] VITALS: RESP 16; TEMP 97.6
[2023-08-28 16:57] VITALS: BP 157/92; PULSE 90; O2SAT 97
--- NOTE | 2023-08-31 13:35 | OP ---
SURGERY DATE/TIME: 08/28/2023 6162 - 4498 PREOPERATIVE DIAGNOSES: 1) Osteomyelitis, right hallux. 2) Retained hardware. 3) Controlled diabetes mellitus. 4) Peripheral neuropathy. POSTOPERATIVE DIAGNOSES: 1) Osteomyelitis, right hallux. 2) Retained hardware. 3) Controlled diabetes mellitus. 4) Peripheral neuropathy. PROCEDURES: 1) Amputation, hallux, and partial 1st metatarsal amputation. 2) Removal of hardware. 3) Bone debridement, 1st metatarsal, right foot. SURGEON: Dimitrios Brown DPM [employer]ION [employer] EQUIPMENT MACHINIST: None. ANESTHESIA: Monitored anesthesia care with 2 g Versed preoperatively. HEMOSTASIS: Pressure dressing. ESTIMATED BLOOD LOSS: Approximately 150 mL. MATERIALS: 3-0 nylon, Genex antibiotic beads with 1 g tobramycin. INJECTABLES: A 25 mL of a 1:1 mixture of 1% lidocaine plain and 0.5% bupivacaine plain injected in a Kathleen block-type fashion to the right foot. INDICATIONS: The patient is a very pleasant 73-year-old male who is very well known to my service for recurrent ulceration to the plantar aspect of the interphalangeal joint of the right and left foot. The right was always seemingly worse. With this extremity, there had been significant changes to the position of the implant that was placed approximately 20 years ago, and as a result, him developing diabetes and neuropathy, this led to abnormal biomechanics that led to ulceration. We have been working diligently to keep the wound from staying open for extended periods of time. We have been successful; however, patient does go down to [place] for approximately 4 to 5 months every winter, and in most cases, he returns with a new ulceration. This year he did return with an ulceration that was to the level of bone. Bone biopsies were taken, demonstrating negative for osteomyelitis at the proximal phalanx approximately 6 to 8 weeks ago. At this time, patient has acquired a new infection, and with x-ray, we have determined that there is extensive osteomyelitis at minimum to the proximal phalanx with some degenerative changes to the proximal phalanx. Discussion was held in regard to options for intervention. As a result, patient does have the implant in place which led to abnormal biomechanics which would need to be removed. As a result of the implant being present and possible infection of the implant, bone biopsies were planned as well as debridement of the first metatarsal in order to eradicate any possibility of residual infection and the application of antibiotic beads. Patient understands all risks, complications, and benefits of surgical intervention at this time including, but not limited to, infection, hematoma, seroma, possibility of delayed wound healing, non-wound healing, and possible need for further surgical intervention at a later date. There have been no guarantees provided as to the outcome of surgical intervention at this time. Plenty of time was allowed for the patient to ask questions which were answered to his apparent satisfaction, so at this time we decided to proceed. DESCRIPTION OF PROCEDURE AND FINDINGS: The patient was brought in the operating room, placed on the operating room table in a supine position. At this time, the right lower extremity was prepped and draped in the typical sterile fashion. Versed was given for mild sedation, and at this time, a 25 mL block consisting of a 1:1 mixture of 1% lidocaine plain and 0.5% bupivacaine plain was injected in a Kathleen block to the right foot. After a sufficient amount of time, a medial racquet-type incision was made around the first digit of the right foot, saving some of the plantar and dorsal skin for reducing tension on closure. Following this, disarticulation of the hallux took place. The implant was assessed and deemed to be significantly loosened. From that standpoint, the metatarsal was then resected partially just past where the implant was imbedded. The hardware was removed prior to this occurring. Following this, a combination of rongeurs, curettes, and osteotomes were utilized to debride the first metatarsal. Bactisure was then utilized to flush the surgical site, then 3 L of sterile saline. Following this, Genex antibiotic beads with 1 g of tobramycin were introduced into the deficit and loosely approximated. From that standpoint, a dressing consisting of Betadine, Adaptic, 4 x 4's, Kerlix, ABD, and Mohan was applied to the right lower extremity. The patient was then returned to the postoperative anesthesia care unit with vital signs stable and vascular status intact. The patient handled the anesthesia as well as the procedure without significant complication. Postoperative orders as indicated in the patient's discharge chart.
== END 2023-08-28 17:10 | disposition home or self-care (01) ==
LOC: SDC 12:47
PROVIDERS: ATTEND Podiatrist Foot & Ankle Surgery
DX: M86.9 Osteomyelitis, unspecified (principal); T84.84XA Pain due to internal orthopedic prosthetic devices, implants and grafts, initial encounter; E11.42 Type 2 diabetes mellitus with diabetic polyneuropathy
CPT/HCPCS: 11981; 20680; 28005; 28810; 36415; 80053; 85027; 87070; 87075; A6260; C1763; J0690; J1642; J2250; J3260

== ENCOUNTER 2023-09-02 05:56 | Day surgery (SDC) | payer MEDICARE ==
[2023-09-02 06:19] LABS: Hemoglobin 10.5 g/dL (13.7-17.5); Mean Cell Volume 88.9 fL (79.0-92.2); Mean Corpuscular Hemoglobin 28.3 pg (25.7-32.2); Mean Corpuscular Hgb Concent. 31.8 g/dL (32.3-36.5); Mean Platelet Volume 10.2 fL (9.4-12.4); Platelet Count 307 x10^3/uL (163-337); Red Blood Count 3.71 x10^6/uL (4.63-6.08); Red Cell Distribution Width 12.7 % (11.6-14.4); White Blood Count 7.7 x10^3/uL (4.23-9.07)
[2023-09-02 06:40] LABS: ALBUMIN 3.7 g/dL (3.5-5.0); ANION GAP 13.6 MEQ/L (5-15); BILIRUBIN,TOTAL 0.3 mg/dL (0.2-1.3); Calcium 9.5 mg/dL (8.4-10.2); Creatinine 1 1.12 mg/dL (0.66-1.25); EST GLOMERULAR FILTRATION RATE 69.4 ML/MIN; Potassium 4.5 mmol/L (3.5-5.1); Total Protein 7.2 g/dL (6.3-8.2)
[2023-09-02] MEDS: Lactated Ringers 1,000 ML IV SCH (06:46)
[2023-09-02] MEDS ORDERED: Marcaine Mpf 0.5% Vial 30 Ml ONE (06:50)
[2023-09-02] MEDS ORDERED: Xylocaine 1% Vial 30 ML PF IJ ONE (06:50)
[2023-09-02] MEDS: KEFZOL 1 GM** 3 G in Sodium Chloride 0.9% 50 ML 50 ML IV SCH (06:58)
[2023-09-02] MEDS ORDERED: DIPRIVAN 200 MG/20 ML IV ONE ×2 (07:05→07:27)
[2023-09-02 08:50] VITALS: RESP 16; O2SAT 97
[2023-09-02 08:59] VITALS: BP 137/63; PULSE 64; TEMP 97.6
--- NOTE | 2023-09-04 09:35 | OP ---
SURGERY DATE/TIME: 09/02/2023 [id number] PREOPERATIVE DIAGNOSES: 1) Osteomyelitis. 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 3) Chronic diabetic foot infection. 4) Peripheral neuropathy. 5) Controlled diabetes mellitus. POSTOPERATIVE DIAGNOSES: 1) Osteomyelitis. 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 3) Chronic diabetic foot infection. 4) Peripheral neuropathy. 5) Controlled diabetes mellitus. PROCEDURES: 1) Partial first metatarsal resection. 2) Removal of antibiotic beads. 3) Abductor hallucis muscle flap. 4) Secondary closure of surgical wound. SURGEON: Dimitrios Brown MD ANESTHESIA: Monitored anesthesia care. HEMOSTASIS: Pressure dressing. QUANTITATIVE BLOOD LOSS: Approximately 10 mL. MATERIALS: 1) 4-0 Monocryl. 2) 2-0 Vicryl. 3) 3-0 nylon. INJECTABLE: 20 mL of 1:1 mixture of 1% lidocaine plain and 0.5% bupivacaine plain injected in the right foot, Kathleen block-type fashion. INDICATIONS: Shahzad is a very pleasant 73-year-old male very well known to my service for a chronic diabetic foot wound on the plantar aspect of his right interphalangeal joint. As a result of multiple attempts at limb salvage and the fact that we have not been able to control for his peripheral neuropathy and infection of the implant, decision was made to proceed with an amputation due to the fact that it is harboring osteomyelitis. From that standpoint, the amputation has already taken place along with the implant removal and bone debridement of the first metatarsal as well as antibiotic-impregnated cement application. From that standpoint, this is a second stage of a procedure in which we will be performing closure. Given that the patient does have chronic osteomyelitis of the portion of metatarsal leading to the first metatarsal, we have decided to get clean margins and determine the course of action going forward based on these results. The patient understands all risks, complications and benefits of surgical intervention at this time including but not limited to infection, hematoma, seroma, possibility of delayed wound healing, nonwound healing and possible need for further surgical intervention at a later date. No guarantees were provided as to the outcome of surgery. Plenty of time was allowed for the patient and his to ask questions, which were answered to his and her apparent satisfaction. From that standpoint, we decided to proceed. DESCRIPTION OF PROCEDURE AND FINDINGS: The patient was brought into the operating room and placed on the operating room table in the supine position. At this time, monitored anesthesia care was administered until the patient was adequately sedated. At this time, the right lower extremity was prepped and draped in typical sterile fashion and lowered onto the surgical field. From this standpoint, attention was directed to the right foot where sutures were removed from the site. The antibiotic beads were then removed in total. From that standpoint, an 18 mm sagittal saw was utilized to remove a portion of the metatarsal for clean margins and this was sent off the field for pathological assessment. From this standpoint, 3 L of sterile saline were utilized to flush the surgical site. Following this, a 15 blade was utilized to incise the edges of the wound looking for healthy bleeding. All fibrotic tissue, all thickened scarred tissue was removed utilizing the 15 blade and a healthy bleeding edge was appreciated. From this standpoint, the harvest of the abductor hallucis muscle belly was performed. Once the harvest was complete, it was flapped over the periosteum of the first metatarsal to provide bulk coverage of the metatarsal if there is a wound dehiscence and improve vascularity to the area to eradicate the infection. This was secured utilizing 2-0 Vicryl. Dog ears were identified and resected. 2-0 Vicryl and 4-0 Monocryl were utilized for subcutaneous closure of the wound edges and then 3-0 nylon was utilized in a simple interrupted fashion to coapt the skin edges. Following this, a dressing consisting of Betadine, Adaptic, 4 x 4, Kerlix, ABD and a multi-layer compression dressing was applied to the right lower extremity. Patient was returned to the postoperative anesthesia care unit with vital signs stable and vascular status intact. The patient handled the anesthesia as well as the procedure without significant complication. Postoperative orders as indicated in the patient's discharge chart.
== END 2023-09-02 09:10 | disposition home or self-care (01) ==
LOC: SDC 05:56
PROVIDERS: ATTEND Podiatrist Foot & Ankle Surgery
DX: M86.9 Osteomyelitis, unspecified (principal); E11.621 Type 2 diabetes mellitus with foot ulcer; E11.42 Type 2 diabetes mellitus with diabetic polyneuropathy; Z96.698 Presence of other orthopedic joint implants
CPT/HCPCS: 13160; 15738; 20680; 28122; 36415; 80053; 85027; J0690; J1335; J1642; J2704

== ENCOUNTER 2024-10-13 21:26 | Observation (INO) | payer MEDICARE ==
[2024-10-13] MEDS ORDERED: MORPHINE SULFATE 4 MG INJ ONE ×2 (21:52→23:02)
[2024-10-13] MEDS ORDERED: Zofran 4 MG/2 ML VIAL ONE (21:52)
[2024-10-13] MEDS ORDERED: BABY ASPIRIN 81 MG CHEW ONE (21:52)
[2024-10-13 21:54] LABS: BASOPHIL % 0.6 % (0.2-1.2); Basophil (Absolute #) 0.08 x10^3/uL (0.01-0.08); Eosinophil (Absolute #) 0.27 x10^3/uL (0.04-0.54); Hematocrit 45.1 % (40.1-51.0); Hemoglobin 14.5 g/dL (13.7-17.5); IMMATURE GRAN # 0.16 x10^3u/L (0.001-0.031); IMMATURE GRAN % 1.2 % (0.001-0.429); Lymphocyte (Absolute #) 2.56 x10^3/uL (1.32-3.57); Mean Corpuscular Hemoglobin 28.5 pg (25.7-32.2); Mean Corpuscular Hgb Concent. 32.2 g/dL (32.3-36.5); Monocyte (Absolute #) 1.30 x10^3/uL (0.30-0.82); NUCLEATED RBC # 0.00 x10^3u/L (0.00-0.012); NUCLEATED RBC % 0.0 % (0.00-0.2); Platelet Count 259 x10^3/uL (163-337); Red Blood Count 5.08 x10^6/uL (4.63-6.08); White Blood Count 13.0 x10^3/uL (4.23-9.07)
[2024-10-13] MEDS: MORPHINE SULFATE 4 MG INJ IV ONE ×2 (21:57→23:03)
[2024-10-13] MEDS: BABY ASPIRIN 81 MG CHEW PO ONE (21:58)
[2024-10-13] MEDS: Zofran 4 MG/2 ML VIAL IV ONE (21:58)
[2024-10-13 22:06] LABS: Calcium 9.8 mg/dL (8.4-10.2); Carbon Dioxide 27.0 mmol/L (22-30); Creatinine 1 1.44 mg/dL (0.66-1.25); EST GLOMERULAR FILTRATION RATE 51.0 ML/MIN; Glucose 172.0 mg/dL (74-106); Potassium 4.7 mmol/L (3.5-5.1); SGOT/AST 30.0 U/L (17-59); SGPT/ALT 35.0 U/L (0-50); Total Protein 8.3 g/dL (6.3-8.2)
[2024-10-13 22:18] LABS: NT PRO BNPII 55.0 pg/mL (<300); TROPONIN < 0.012 ng/mL (0.000-0.033)
[2024-10-13] MEDS ORDERED: NITRO-BID 2% UD PACKETS ONE (23:01)
--- NOTE | 2024-10-13 23:01 | ERPHSYRPT ---
- History of Present Illness Time Seen by Provider: 10/13/24 21:49 Patient Subjective Stated Complaint: c/o chest pain Triage Nursing Assessment: patient brought to ED by with c/o chest pain that started around 2100. patient states that the pain is a 7/10 sharp pain that radiates into his left shoulder. pulses normal in all extremities, s1 and s2 heard, lung counds clear, skin w/n/d, hypertensive, gait steady, denies feeling short of breath, denies nausea and vomiting. Physician History: 74-year-old male with history of hypertension, hyperlipidemia, diabetes mellitus presented to the ER with sudden onset left-sided chest pain almost an hour prior to arrival, moderate to severe sharp, nonradiating, no significant aggravating or relieving factors with no associated palpitations or shortness of breath. Denies any increased swelling in lower extremities but what he has at his baseline. No history of coronary artery disease or CHF. No recent stress test or any other cardiac workup done. Aspirin Treatment Today: 81 mg x 4, provided by ED Allergies/Adverse Reactions: No Known Drug Allergies Allergy (Verified 09/02/23 06:16) Home Medications: Gabapentin [Neurontin ] 400 mg PO BID 11/27/18 [History] Insulin Glargine,Hum.rec.anlog [Basaglar Patiencepen U-100] 70 unit SQ HS 11/27/18 [History] Lisinopril 20 mg [Zestril 20 MG] 40 mg PO DAILY 11/27/18 [History] Simvastatin 10 mg [Zocor 10MG] 40 mg PO DAILY 11/27/18 [History] Metformin HCl 500 mg [Glucophage 500 MG] 1,000 mg PO BID 08/16/20 [History] Semaglutide [Ozempic] 1 mg SQ WEEKLY 08/16/20 [History] Fenofibrate 54 mg PO DAILY 11/21/21 [History] Insulin Aspart (Niacinamide) [Fiasp 100 Unit/ml Vial] 20 unit SQ TIDWMEALS 11/21/21 [History] Cyanocobalamin (Vitamin B-12) [Vitamin B-12] 5,000 mg PO DAILY 10/17/22 [History] Dapagliflozin Propanediol [Farxiga] 10 mg PO DAILY 08/14/23 [History] Gabapentin [Neurontin] 600 mg PO HS 08/14/23 [History] HydrALAzine HCL 25 MG TAB [Apresoline 25 MG TABLET] 25 mg PO BID 08/14/23 [History] Acetaminophen/Diphenhydramine [Tylenol Pm Exstr 500-25Mg Cplt] 2 tab PO HS 08/28/23 [History] L.acidoph,Paracasei, B.lactis [Probiotic] 1 cap PO DAILY 08/28/23 [History] Furosemide 40 mg PO DAILY 10/13/24 [History] Hx Tetanus, Diphtheria Vaccination/Date Given: No Hx Influenza Vaccination/Date Given: Yes Hx Pneumococcal Vaccination/Date Given: Yes Travel Risk - International Travel Have you traveled outside of the country in past 3 weeks: No - Emerging Infectious Disease Are you exhibiting symptoms associated with any current EIDs: No - Review of Systems Constitutional: No Symptoms Ears, Nose, & Throat: No Symptoms Respiratory: No Symptoms Cardiac: Chest Pain Abdominal/Gastrointestinal: No Symptoms Genitourinary Symptoms: No Symptoms Musculoskeletal: No Symptoms Skin: No Symptoms Neurological: No Symptoms Psychological: No Symptoms Hematologic/Lymphatic: No Symptoms - Past Medical History Pertinent Past Medical History: Yes Neurological History: No Pertinent History ENT History: Cataracts Cardiac History: High Cholesterol, Hypertension Respiratory History: Sleep Apnea Endocrine Medical History: Diabetes Type II Musculoskeletal History: Osteoarthritis GI Medical History: No Pertinent History History: No Pertinent History Psycho-Social History: No Pertinent History Male Reproductive Disorders: No Pertinent History - Past Surgical History Past Surgical History: Yes Neuro Surgical History: No Pertinent History Cardiac: No Pertinent History Respiratory: No Pertinent History Gastrointestinal: Appendectomy Genitourinary: No Pertinent History Musculoskeletal: Amputation, Orthopedic Surgery, Other Male Surgical History: No Pertinent History Other Surgical History: left knee, bilat big toe joints,back,vastectomy, colonoscopy, right big tow amputation - Social History Smoking Status: Former smoker Exposure to second hand smoke: No Drug Use: none - Social Determinants of Health Will the patient participate in the screening: Yes Do you worry about a steady place to live?: No Do you have any problems with any of the following?: No known problems In the past 12 months,have you had to go without utilities?: No Transportation Issues: No Has anyone in your support network made you feel unsafe?: No Have you or anyone in your house had to go w/o enough food: No - Nursing Vital Signs Nursing Vital Signs: Initial Vital Signs Temperature 99 F 10/13/24 21:29 Pulse Rate 102 H 10/13/24 21:29 Respiratory Rate 24 10/13/24 21:29 Blood Pressure 201/93 10/13/24 21:29 O2 Sat by Pulse Oximetry 98 10/13/24 21:29 Pain Scale Pain Intensity 7 - Physical Exam General Appearance: no apparent distress Eye Exam: PERRL/EOMI Ears, Nose, Throat Exam: normal ENT inspection Neck Exam: normal inspection, full range of motion Respiratory Exam: normal breath sounds, lungs clear Cardiovascular Exam: normal heart sounds, tachycardia, edema Gastrointestinal/Abdomen Exam: soft, normal bowel sounds, No tenderness Extremity Exam: normal inspection, normal range of motion Neurologic Exam: alert, oriented x 3, cooperative Skin Exam: normal color SpO2 Interpretation: normal SpO2: 95 O2 Delivery: Room Air - Course EKG Interpreted by Me: RATE, Sinus Tach, Left [place] Deviation, NORMAL INTERVALS, Right Bundle Branch Block, Non-specific ST Changes Ordered Tests: Active Orders 24 hr Category Date Time Status Vascular Sonographer STAT Care 10/13/24 21:49 Active EKG-ER Only STAT Care 10/13/24 21:49 Active IV Insertion STAT Care 10/13/24 21:49 Active CHEST 1 VIEW (PORTABLE) Stat Exams 10/13/24 21:49 Taken CBC W DIFF Stat Lab 10/13/24 21:40 Completed CMP Stat Lab 10/13/24 21:40 Completed NT PRO BNPII Stat Lab 10/13/24 21:40 Completed TROPONIN Q4H Lab 10/13/24 21:40 Completed TROPONIN Q4H Lab 10/14/24 02:00 Ordered TROPONIN Q4H Lab 10/14/24 06:00 Ordered Medication Summary Discontinued Medications Generic Name Dose Route Start Last Admin Trade Name Freq PRN Reason Stop Dose Admin Aspirin 324 mg 10/13/24 21:49 10/13/24 21:58 Aspirin 81 Mg Tab.Chew PO 10/13/24 21:50 324 mg STAT ONE Administration Aspirin Confirm 10/13/24 21:52 Aspirin 81 Mg Tab.Chew Administered 10/13/24 21:53 Dose 324 mg .ROUTE .STK-MED ONE Morphine Sulfate 4 mg 10/13/24 21:49 10/13/24 21:57 Morphine Sulfate 4 Mg/Ml Injection IV 10/13/24 21:50 4 mg STAT ONE Administration Morphine Sulfate Confirm 10/13/24 21:52 Morphine Sulfate 4 Mg/Ml Injection Administered 10/13/24 21:53 Dose 4 mg .ROUTE .STK-MED ONE Morphine Sulfate 4 mg 10/13/24 22:58 Morphine Sulfate 4 Mg/Ml Injection IV 10/13/24 22:59 STAT ONE Morphine Sulfate Confirm 10/13/24 23:02 Morphine Sulfate 4 Mg/Ml Injection Administered 10/13/24 23:03 Dose 4 mg .ROUTE .STK-MED ONE Nitroglycerin 1 gm 10/13/24 22:58 Nitroglycerin 1 Gm Packet TOP 10/13/24 22:59 STAT ONE Nitroglycerin Confirm 10/13/24 23:01 Nitroglycerin 1 Gm Packet Administered 10/13/24 23:02 Dose 1 gm .ROUTE .STK-MED ONE Ondansetron HCl 4 mg 10/13/24 21:49 10/13/24 21:58 Ondansetron Hcl 4 Mg/2 Ml Vial IV 10/13/24 21:50 4 mg STAT ONE Administration Ondansetron HCl Confirm 10/13/24 21:52 Ondansetron Hcl 4 Mg/2 Ml Vial Administered 10/13/24 21:53 Dose 4 mg .ROUTE .STK-MED ONE Lab/Rad Data: Laboratory Result Diagrams 10/13/24 21:40 10/13/24 21:40 Laboratory Results 10/13/24 10/13/24 10/13/24 Range/Units 21:40 21:40 21:40 WBC 13.0 H (4.23-9.07) x10^3/uL RBC 5.08 (4.63-6.08) x10^6/uL Hgb 14.5 (13.7-17.5) g/dL Hct 45.1 (40.1-51.0) % MCV 88.8 (79.0-92.2) fL MCH 28.5 (25.7-32.2) pg MCHC 32.2 L (32.3-36.5) g/dL RDW 13.1 (11.6-14.4) % Plt Count 259 (163-337) x10^3/uL MPV 11.1 (9.4-12.4) fL Gran % 66.4 (34.0-67.9) % Immature Gran % (Auto) 1.2 H (0.001-0.429) % Nucleat RBC Rel Count 0.0 (0.00-0.2) % Eos # (Auto) 0.27 (0.04-0.54) x10^3/uL Immature Gran # (Auto) 0.16 H (0.001-0.031) x10^3u/L Absolute Lymphs (auto) 2.56 (1.32-3.57) x10^3/uL Absolute Monos (auto) 1.30 H (0.30-0.82) x10^3/uL Absolute Nucleated RBC 0.00 (0.00-0.012) x10^3u/L Lymphocytes % 19.7 L (21.8-53.1) % Monocytes % 10.0 (5.3-12.2) % Eosinophils % 2.1 (0.8-7.0) % Basophils % 0.6 (0.2-1.2) % Absolute Granulocytes 8.64 H (1.78-5.38) x10^3/uL Basophils # 0.08 (0.01-0.08) x10^3/uL Sodium 143 (135-145) mmol/L Potassium 4.7 (3.5-5.1) mmol/L Chloride 104 (98-107) mmol/L Carbon Dioxide 27 (22-30) mmol/L Anion Gap 17.0 H (5-15) MEQ/L BUN 17 (9-20) mg/dL Creatinine 1.44 H (0.66-1.25) mg/dL Estimated GFR 51.0 ML/MIN Glucose 172 H (74-106) mg/dL Calcium 9.8 (8.4-10.2) mg/dL Total Bilirubin 0.20 (0.2-1.3) mg/dL AST 30 (17-59) U/L ALT 35 (0-50) U/L Alkaline Phosphatase 68 (38-126) U/L Troponin I < 0.012 (0.000-0.033) ng/mL NT-Pro-B Natriuret Pep 55.0 (<300) pg/mL Serum Total Protein 8.3 H (6.3-8.2) g/dL Albumin 4.6 (3.5-5.0) g/dL - Progress Progress: improved, re-examined Air Movement: good Progress Note: 10/13/24 23:08 Differential diagnosis: Acute myocardial infarction/ACS, pneumonia, pneumothorax, pulmonary embolism, aortic dissection 74-year-old is evaluated in the ER for sudden onset left-sided chest pain. EKG is sinus tachycardia with no acute ST elevations. Patient has a blood pressure in 200s on presentation, given aspirin and symptomatic treatment for pain, on reevaluation pain is better but not completely resolved. Blood pressure improved to 160s. He is given another dose of morphine and Nitropaste. Workup showed white count of 13, chemistries with stable CKD creatinine of 1.4, negative initial troponin. Chest x-ray interpreted by me is negative for acute infiltrative process. Does not seem patient has pulmonary edema. Official report is pending. Patient does not have any cardiac workup done in the recent past send initial troponin could be negative because patient pain started only an hour ago. Also patient has multiple risk factors for CAD with high heart score. I have shared the results of workup with patient and family and offered observation admission which she understands and agrees. I have discussed with Dr. Salas, reviewed history, workup and patient is accepted for admission Complexity of problems addressed: High acuity Complexity of data reviewed/analyzed: Extensive Risk of complication: Moderate Blood Culture(s) Obtained: No Antibiotics given: No Discussed with : Lesley Will see patient in: hospital (observation) Counseled pt/family regarding: lab results, diagnosis, rad results Medical Desision Making - Independent Historian Additional History obtained from: Spouse - Discussion of managment Care discussed with:: hospitalist Reviewed:: Test results Agreed on:: Treatment plan, place in obs Will see patient: in hospital - Diagnostic Testing Diagnostic test were ordered, analyzed, and reviewed by me: Yes Radiological Interpretation: Interpreted by me - Risk of complications The pt has a mod risk of morbidity or mortality based on: Need for prescription drug management The pt has a high risk of morbidity or mortality based on: Decision regarding hospitilization or escalation of hosp level of care - Departure Departure Disposition: Observation Clinical Impression: Chest pain, rule out acute myocardial infarction Condition: Stable Critical Care Time: No Referrals: NASRA SERVIN NP [Primary Care Provider, [facility]] - Follow up/PCP as directed
[2024-10-13] MEDS: NITRO-BID 2% UD PACKETS TOP ONE (23:03)
[2024-10-14] MEDS: Lantus Insulin SQ SCH (01:00)
[2024-10-14] MEDS ORDERED: NON-FORMULARY ITEM (Semaglutide [Ozempic] 0.25 MG/0.2 ML Pen.Injctr) SQ SCH (02:15)
[2024-10-14] MEDS ORDERED: Zofran 4 MG/2 ML VIAL IV PRN (02:17)
[2024-10-14] MEDS ORDERED: TYLENOL 325 MG PO PRN (02:17)
[2024-10-14] MEDS ORDERED: HUMALOG SQ PRN (02:19)
--- NOTE | 2024-10-14 02:37 | PCM.HP ---
History of Present Illness - Chief Complaint Chief Complaint: chest pain rule out Date: 10/13/24 History of Present Illness: is a 74 year old male with a history of hypertension, hyperlipidemia, diabetes mellitus, and CKD, who presented to the ED with sudden onset left-sided chest pain which started almost an hour prior to arrival. The pain was moderate to severe sharp, nonradiating, and had no significant aggravating or relieving factors, with no associated palpitations or shortness of breath. He denied any increased swelling in lower extremities but what he has at his baseline. He has no history of coronary artery disease or CHF. No recent stress test or any other cardiac workup done; his last stress was negative but that was several years ago. In the ED, the patient's BP was noted to be elevated. Nitro paste was applied. Troponins were negative. - Review of Systems Constitutional: No Symptoms Eyes: No Symptoms Ears, Nose, & Throat: No Symptoms Respiratory: No Symptoms Cardiac: Chest Pain, Edema (chronic (unchanged)) Abdominal/Gastrointestinal: No Symptoms Genitourinary Symptoms: No Symptoms Musculoskeletal: No Symptoms Skin: No Symptoms Neurological: No Symptoms Psychological: No Symptoms Endocrine: No Symptoms Hematologic/Lymphatic: No Symptoms Immunological/Allergic: No Symptoms All Other Systems: Reviewed and Negative Medications & Allergies Home Medications: Home Medication List Gabapentin [Neurontin ] 400 mg PO BID 11/27/18 [History Confirmed 10/13/24] Insulin Glargine,Hum.rec.anlog [Basaglar Kwikpen U-100] 70 unit SQ HS 11/27/18 [History Confirmed 10/13/24] Lisinopril 20 mg [Zestril 20 MG] 40 mg PO DAILY 11/27/18 [History Confirmed 10/13/24] Simvastatin 10 mg [Zocor 10MG] 40 mg PO DAILY 11/27/18 [History Confirmed 10/13/24] Metformin HCl 500 mg [Glucophage 500 MG] 1,000 mg PO BID 08/16/20 [History Confirmed 10/13/24] Semaglutide [Ozempic] 1 mg SQ WEEKLY 08/16/20 [History Confirmed 10/13/24] Fenofibrate 54 mg PO DAILY 11/21/21 [History Confirmed 10/13/24] Insulin Aspart (Niacinamide) [Fiasp 100 Unit/ml Vial] 20 unit SQ TIDWMEALS 11/21/21 [History Confirmed 10/13/24] Cyanocobalamin (Vitamin B-12) [Vitamin B-12] 5,000 mg PO DAILY 10/17/22 [History Confirmed 10/13/24] Dapagliflozin Propanediol [Farxiga] 10 mg PO DAILY 08/14/23 [History Confirmed 10/13/24] Gabapentin [Neurontin] 600 mg PO HS 08/14/23 [History Confirmed 10/13/24] HydrALAzine HCL 25 MG TAB [Apresoline 25 MG TABLET] 25 mg PO BID 08/14/23 [History Confirmed 10/13/24] Acetaminophen/Diphenhydramine [Tylenol Pm Exstr 500-25Mg Cplt] 2 tab PO HS 08/28/23 [History Confirmed 10/13/24] L.acidoph,Paracasei, B.lactis [Probiotic] 1 cap PO DAILY 08/28/23 [History Confirmed 10/13/24] Furosemide 40 mg PO DAILY 10/13/24 [History Confirmed 10/13/24] Allergies/Adverse Reactions: Allergies Allergy/AdvReac Type Severity Reaction Status Date / Time No Known Drug Allergies Allergy Verified 09/02/23 06:16 - Past Medical History Past Medical History: Yes Neurological History: No Pertinent History ENT History: Cataracts Cardiac History: High Cholesterol, Hypertension Respiratory History: Sleep Apnea Endocrine Medical History: Diabetes Type II Musculoskelatal History: Fractures, Osteoarthritis GI Medical History: No Pertinent History History: Renal Disease Pyscho-Social History: No Pertinent History Male Reproductive Disorders: No Pertinent History Comment: L clavicle fx - Past Surgical History Past Surgical History: Yes Neuro Surgical History: No Pertinent History Cardiac History: No Pertinent History Respiratory Surgery: No Pertinent History GI Surgical History: Appendectomy Genitourinary Surgical Hx: No Pertinent History Musculskeletal Surgical Hx: Amputation, Orthopedic Surgery, Other Male Surgical History: No Pertinent History Other Surgical History: left knee TKR, bilat big toe joints replacements, back, vastectomy, colonoscopy, right big toe amputation Significant Family History: no pertinent family hx - Social History Smoking Status: Former smoker Exposure to second hand smoke: Yes Alcohol: Occasionally Drug Use: none - Social Determinants of Health Will the patient participate in the screening: Yes Do you worry about a steady place to live?: No Do you have any problems with any of the following?: No known problems In the past 12 months,have you had to go without utilities?: No Have you or anyone in your house had to go without enough: No Transportation Issues: No Has anyone in your support network made you feel unsafe?: No Does the patient want assistance with any of the above?: No - Physical Exam Vital Signs: Vital Signs - 24 hr Temp Pulse Resp BP BP Pulse Ox 10/14/24 00:59 93 H 16 93 L 10/13/24 23:44 97.8 F 88 18 143/67 93 L 10/13/24 23:31 92 H 16 126/64 94 L 10/13/24 23:12 95 10/13/24 23:00 91 H 16 161/81 94 L 10/13/24 22:30 92 H 13 168/75 95 10/13/24 22:10 92 H 14 154/91 95 10/13/24 22:01 96 H 21 185/72 94 L 10/13/24 21:43 94 H 26 H 188/79 94 L 10/13/24 21:29 99 F 102 H 24 201/93 98 General Appearance: no apparent distress, alert Neurologic Exam: alert, oriented x 3, cooperative, shake packer II-XII nml as tested, n ormal mood/affect, nml cerebellar function, No sensation nml, No motor deficits, No sensory deficit Eye Exam: PERRL/EOMI, eyes nml inspection, No scleral icterus, No pale conj unctivae, No photophobia Ears, Nose, Throat Exam: normal ENT inspection Neck Exam: normal inspection, non-tender, supple, full range of motion, No men ingismus Respiratory Exam: normal breath sounds, lungs clear, airway intact, No chest tenderness, No respiratory distress, No accessory muscle use Cardiovascular Exam: regular rate/rhythm, normal heart sounds, edema, No murmur, No friction rub, No gallop Gastrointestinal/Abdomen Exam: soft, normal bowel sounds, No tenderness, No distention, No guarding Back Exam: normal range of motion Extremity Exam: normal inspection, normal range of motion, pedal edema Skin Exam: normal color, No rash, No petechiae, No jaundice Results - Labs Lab/Micro Results: Lab Results-Last 24 Hours 07/30/25 07/30/25 07/30/25 Range/Units 21:40 21:40 21:40 WBC 13.0 H (4.23-9.07) x10^3/uL RBC 5.08 (4.63-6.08) x10^6/uL Hgb 14.5 (13.7-17.5) g/dL Hct 45.1 (40.1-51.0) % MCV 88.8 (79.0-92.2) fL MCH 28.5 (25.7-32.2) pg MCHC 32.2 L (32.3-36.5) g/dL RDW 13.1 (11.6-14.4) % Plt Count 259 (163-337) x10^3/uL MPV 11.1 (9.4-12.4) fL Gran % 66.4 (34.0-67.9) % Immature Gran % (Auto) 1.2 H (0.001-0.429) % Nucleat RBC Rel Count 0.0 (0.00-0.2) % Eos # (Auto) 0.27 (0.04-0.54) x10^3/uL Immature Gran # (Auto) 0.16 H (0.001-0.031) x10^3u/L Absolute Lymphs (auto) 2.56 (1.32-3.57) x10^3/uL Absolute Monos (auto) 1.30 H (0.30-0.82) x10^3/uL Absolute Nucleated RBC 0.00 (0.00-0.012) x10^3u/L Lymphocytes % 19.7 L (21.8-53.1) % Monocytes % 10.0 (5.3-12.2) % Eosinophils % 2.1 (0.8-7.0) % Basophils % 0.6 (0.2-1.2) % Absolute Granulocytes 8.64 H (1.78-5.38) x10^3/uL Basophils # 0.08 (0.01-0.08) x10^3/uL Sodium 143 (135-145) mmol/L Potassium 4.7 (3.5-5.1) mmol/L Chloride 104 (98-107) mmol/L Carbon Dioxide 27 (22-30) mmol/L Anion Gap 17.0 H (5-15) MEQ/L BUN 17 (9-20) mg/dL Creatinine 1.44 H (0.66-1.25) mg/dL Estimated GFR 51.0 ML/MIN Glucose 172 H (74-106) mg/dL Calcium 9.8 (8.4-10.2) mg/dL Total Bilirubin 0.20 (0.2-1.3) mg/dL AST 30 (17-59) U/L ALT 35 (0-50) U/L Alkaline Phosphatase 68 (38-126) U/L Troponin I < 0.012 (0.000-0.033) ng/mL NT-Pro-B Natriuret Pep 55.0 (<300) pg/mL Serum Total Protein 8.3 H (6.3-8.2) g/dL Albumin 4.6 (3.5-5.0) g/dL - Radiology Impressions Radiology Exams & Impressions: Radiology Procedures Category Date Time Status CHEST 1 VIEW (PORTABLE) Stat Exams 10/13/24 21:49 Taken - Other Procedures and Tests Respiratory Therapy 10/14/24 00:58 BiPap/CPAP ROUTINE 10/14/24 02:17 EKG REPEAT IN AM Assessment/Plan (1) Chest pain, rule out acute myocardial infarction Current Visit: Yes Status: Acute Assessment & Plan: Serial troponins on telemetry. Repeat AM EKG. Follows with Dr. Preston. May need referral for outpatient stress test. Placed on ASA 81 mg. Code(s): R07.9 - CHEST PAIN, UNSPECIFIED (2) HTN (hypertension) Current Visit: No Status: Chronic Assessment & Plan: BP was initially elevated but is now improved. Monitor BP trend on home regimen. Code(s): I10 - ESSENTIAL (PRIMARY) HYPERTENSION (3) HLD (hyperlipidemia) Current Visit: No Status: Chronic Assessment & Plan: Continue statin. Code(s): E78.5 - HYPERLIPIDEMIA, UNSPECIFIED (4) Type 2 diabetes mellitus Current Visit: No Status: Chronic Assessment & Plan: Continue home regimen. Monitor sugars on ISS. Telemedicine Encounter - Telemedicine Encounter Telemedicine Encounter: "The entirety of this encounter was performed via Telemedicine" This visit was performed using real-time audio and video connection between my location and thepatients locationwith the assistance of a surrogateat the patients location. Written or verbal consent was obtained from the patient/guardian to perform this visit using[employer] Sk[employer] Networks[employer]ctwtMobtelemedicine technology. Any patient questions regarding the telemedicine interaction were answered. Please note that this admission required 46 minutes to complete.
[2024-10-14 02:44] LABS: BASOPHIL % 0.8 % (0.2-1.2); Basophil (Absolute #) 0.09 x10^3/uL (0.01-0.08); Eosinophil (Absolute #) 0.20 x10^3/uL (0.04-0.54); Hematocrit 39.2 % (40.1-51.0); Hemoglobin 12.9 g/dL (13.7-17.5); IMMATURE GRAN # 0.11 x10^3u/L (0.001-0.031); IMMATURE GRAN % 1.0 % (0.001-0.429); Lymphocyte (Absolute #) 1.87 x10^3/uL (1.32-3.57); Mean Corpuscular Hemoglobin 29.1 pg (25.7-32.2); Mean Corpuscular Hgb Concent. 32.9 g/dL (32.3-36.5); Monocyte (Absolute #) 1.01 x10^3/uL (0.30-0.82); NUCLEATED RBC # 0.00 x10^3u/L (0.00-0.012); NUCLEATED RBC % 0.0 % (0.00-0.2); Platelet Count 228 x10^3/uL (163-337); Red Blood Count 4.43 x10^6/uL (4.63-6.08); White Blood Count 10.9 x10^3/uL (4.23-9.07)
[2024-10-14 02:59] LABS: Calcium 9.0 mg/dL (8.4-10.2); Carbon Dioxide 23.0 mmol/L (22-30); Creatinine 1 1.27 mg/dL (0.66-1.25); EST GLOMERULAR FILTRATION RATE 59.3 ML/MIN; Glucose 176.0 mg/dL (74-106); Potassium 4.4 mmol/L (3.5-5.1)
[2024-10-14] MEDS ORDERED: MEDICATION INTERVENTION MC SCH ×2 (07:45)
[2024-10-14] MEDS ORDERED: NON-FORMULARY ITEM (Insulin Aspart (Niacinamide) [Fiasp 100 Unit/Ml Vial] 100 UNIT/ML Vial SQ SCH (08:00)
[2024-10-14 08:15] VITALS: RESP 20
[2024-10-14] MEDS: Glucophage 500 MG PO SCH (08:28)
[2024-10-14] MEDS: HUMALOG SQ SCH (08:28)
--- NOTE | 2024-10-14 08:55 | XRAY ---
Indication: Chest pain. Comparison: November 12, 2010 Portable chest demonstrates new mild left hemidiaphragm elevation with adjacent subsegmental atelectasis/scarring. No focal infiltrate, consolidation, or large effusion. Heart not enlarged with a few small left hilar calcified nodes. Bony thorax intact with osteopenia and mild degenerative changes. Impression: Nonacute chest with chronic features.
[2024-10-14] MEDS ORDERED: FENOFIBRATE 54 MG PO SCH (10:00)
[2024-10-14] MEDS ORDERED: NON-FORMULARY ITEM (L.Acidoph,Paracasei, B.Lactis [Probiotic] 1 EACH Capsule) PO SCH (10:00)
[2024-10-14] MEDS ORDERED: BABY ASPIRIN 81 MG CHEW PO SCH (10:00)
[2024-10-14] MEDS ORDERED: NON-FORMULARY ITEM (Cyanocobalamin (Vitamin B-12) [Vitamin B-12] 5,000 MCG Capsule) PO SCH (10:00)
[2024-10-14] MEDS ORDERED: Zocor 10MG PO SCH (10:00)
[2024-10-14] MEDS ORDERED: NON-FORMULARY ITEM (Dapagliflozin Propanediol [Farxiga] 10 MG Tablet) PO SCH (10:00)
[2024-10-14] MEDS: Zestril 20 MG PO SCH (10:04)
[2024-10-14] MEDS: Vitamin B-12 500 MCG PO SCH (10:04)
[2024-10-14] MEDS: ZOCOR 20MG PO SCH (10:04)
[2024-10-14] MEDS: Tricor 145 MG PO SCH (10:04)
[2024-10-14] MEDS: Lasix 40 MG PO SCH (10:04)
[2024-10-14] MEDS: ECOTRIN 81 MG PO SCH (10:04)
[2024-10-14] MEDS: Acidophilus TABLET PO SCH (10:04)
[2024-10-14] MEDS: Apresoline 25 MG TABLET PO SCH (10:05)
[2024-10-14] MEDS: HEPARIN 5000 UNITS/0.5 ML (HIGH RISK MED) SQ SCH (10:09)
[2024-10-14] MEDS ORDERED: Mylicon 80MG PO PRN (11:51)
--- NOTE | 2024-10-14 11:56 | PCM.DS ---
Discharge Summary Date of Admission: 10/13/24 23:41 Date of Discharge: 10/14/24 Admitting Physician: HUBER WILKINSON MD Primary Care Provider: NASRA SERVIN Allergies Allergies No Known Drug Allergies Allergy (Verified 09/02/23 06:16) Hospital Summary - Hospital Course Hospital Course: Mr. Ulloa is a 74-year-old male with a medical history of hypertension, hyperlipidemia, diabetes mellitus, and chronic kidney disease who presented to the emergency department on 10/13/24 with sudden onset left-sided chest pain that began approximately one hour prior to arrival. He described the pain as moderate to severe, sharp, and non-radiating, with no significant aggravating or relieving factors. He denied any associated symptoms such as palpitations, shortness of breath, fever, nausea, vomiting, or diarrhea. There was no recent increase in lower extremity swelling, and he denied a history of coronary artery disease or congestive heart failure. He has not had recent cardiac workup; his last stress test several years ago was negative. In the ED, the patient was noted to be hypertensive and nitroglycerin paste was applied. Serial troponins were negative, and a chest X-ray revealed no acute cardiopulmonary findings. His white blood cell count was 10.9, and kidney function remained at baseline. On 10/14/24, the patient reported ongoing chest discomfort, worsened by deep inspiration and radiating to his back. He also noted abdominal distension and excessive gas, which he attributed to eating [place] food and drinking multiple jalapeo margaritas the day prior. On examination, hyperactive bowel sounds were present in all four quadrants. The patient suspects gallbladder issues, and an abdominal ultrasound was ordered. Gas-X was initiated. If imaging is non-concerning, discharge is planned. The patient follows with Dr. Bob in [place] for cardiology, and an outpatient follow-up will be arranged. He currently denies any further concerns. - Vitals & Intake/Output Vital Signs: Vital Signs Temperature 98 F 10/14/24 08:00 Pulse Rate 68 10/14/24 08:00 Respiratory Rate 20 10/14/24 08:00 Blood Pressure 151/70 10/14/24 08:00 O2 Sat by Pulse Oximetry 96 10/14/24 08:00 Intake & Output: Intake & Output 10/11/24 10/12/24 10/13/24 10/14/24 11:59 11:59 11:59 11:59 Intake Total 480 Balance 480 Weight 128.9 kg - Lab Result Diagrams: 10/14/24 02:25 10/14/24 02:25 Lab Results-Last 24 Hrs: Lab Results-Last 24 Hours 10/13/24 10/13/24 10/13/24 Range/Units 21:40 21:40 21:40 WBC 13.0 H (4.23-9.07) x10^3/uL RBC 5.08 (4.63-6.08) x10^6/uL Hgb 14.5 (13.7-17.5) g/dL Hct 45.1 (40.1-51.0) % MCV 88.8 (79.0-92.2) fL MCH 28.5 (25.7-32.2) pg MCHC 32.2 L (32.3-36.5) g/dL RDW 13.1 (11.6-14.4) % Plt Count 259 (163-337) x10^3/uL MPV 11.1 (9.4-12.4) fL Gran % 66.4 (34.0-67.9) % Immature Gran % (Auto) 1.2 H (0.001-0.429) % Nucleat RBC Rel Count 0.0 (0.00-0.2) % Eos # (Auto) 0.27 (0.04-0.54) x10^3/uL Immature Gran # (Auto) 0.16 H (0.001-0.031) x10^3u/L Absolute Lymphs (auto) 2.56 (1.32-3.57) x10^3/uL Absolute Monos (auto) 1.30 H (0.30-0.82) x10^3/uL Absolute Nucleated RBC 0.00 (0.00-0.012) x10^3u/L Lymphocytes % 19.7 L (21.8-53.1) % Monocytes % 10.0 (5.3-12.2) % Eosinophils % 2.1 (0.8-7.0) % Basophils % 0.6 (0.2-1.2) % Absolute Granulocytes 8.64 H (1.78-5.38) x10^3/uL Basophils # 0.08 (0.01-0.08) x10^3/uL Sodium 143 (135-145) mmol/L Potassium 4.7 (3.5-5.1) mmol/L Chloride 104 (98-107) mmol/L Carbon Dioxide 27 (22-30) mmol/L Anion Gap 17.0 H (5-15) MEQ/L BUN 17 (9-20) mg/dL Creatinine 1.44 H (0.66-1.25) mg/dL Estimated GFR 51.0 ML/MIN Glucose 172 H (74-106) mg/dL POC Glucometer (74 to 106) mg/dL Calcium 9.8 (8.4-10.2) mg/dL Total Bilirubin 0.20 (0.2-1.3) mg/dL AST 30 (17-59) U/L ALT 35 (0-50) U/L Alkaline Phosphatase 68 (38-126) U/L Troponin I < 0.012 (0.000-0.033) ng/mL NT-Pro-B Natriuret Pep 55.0 (<300) pg/mL Serum Total Protein 8.3 H (6.3-8.2) g/dL Albumin 4.6 (3.5-5.0) g/dL 10/14/24 10/14/24 10/14/24 Range/Units 02:25 02:25 02:25 WBC 10.9 H (4.23-9.07) x10^3/uL RBC 4.43 L (4.63-6.08) x10^6/uL Hgb 12.9 L (13.7-17.5) g/dL Hct 39.2 L (40.1-51.0) % MCV 88.5 (79.0-92.2) fL MCH 29.1 (25.7-32.2) pg MCHC 32.9 (32.3-36.5) g/dL RDW 13.2 (11.6-14.4) % Plt Count 228 (163-337) x10^3/uL MPV 11.3 (9.4-12.4) fL Gran % 69.9 H (34.0-67.9) % Immature Gran % (Auto) 1.0 H (0.001-0.429) % Nucleat RBC Rel Count 0.0 (0.00-0.2) % Eos # (Auto) 0.20 (0.04-0.54) x10^3/uL Immature Gran # (Auto) 0.11 H (0.001-0.031) x10^3u/L Absolute Lymphs (auto) 1.87 (1.32-3.57) x10^3/uL Absolute Monos (auto) 1.01 H (0.30-0.82) x10^3/uL Absolute Nucleated RBC 0.00 (0.00-0.012) x10^3u/L Lymphocytes % 17.2 L (21.8-53.1) % Monocytes % 9.3 (5.3-12.2) % Eosinophils % 1.8 (0.8-7.0) % Basophils % 0.8 (0.2-1.2) % Absolute Granulocytes 7.62 H (1.78-5.38) x10^3/uL Basophils # 0.09 H (0.01-0.08) x10^3/uL Sodium 139 (135-145) mmol/L Potassium 4.4 (3.5-5.1) mmol/L Chloride 106 (98-107) mmol/L Carbon Dioxide 23 (22-30) mmol/L Anion Gap 14.2 (5-15) MEQ/L BUN 19 (9-20) mg/dL Creatinine 1.27 H (0.66-1.25) mg/dL Estimated GFR 59.3 ML/MIN Glucose 176 H (74-106) mg/dL POC Glucometer (74 to 106) mg/dL Calcium 9.0 (8.4-10.2) mg/dL Total Bilirubin (0.2-1.3) mg/dL AST (17-59) U/L ALT (0-50) U/L Alkaline Phosphatase (38-126) U/L Troponin I < 0.012 (0.000-0.033) ng/mL NT-Pro-B Natriuret Pep (<300) pg/mL Serum Total Protein (6.3-8.2) g/dL Albumin (3.5-5.0) g/dL 10/14/24 10/14/24 10/14/24 Range/Units 06:00 07:54 11:38 WBC (4.23-9.07) x10^3/uL RBC (4.63-6.08) x10^6/uL Hgb (13.7-17.5) g/dL Hct (40.1-51.0) % MCV (79.0-92.2) fL MCH (25.7-32.2) pg MCHC (32.3-36.5) g/dL RDW (11.6-14.4) % Plt Count (163-337) x10^3/uL MPV (9.4-12.4) fL Gran % (34.0-67.9) % Immature Gran % (Auto) (0.001-0.429) % Nucleat RBC Rel Count (0.00-0.2) % Eos # (Auto) (0.04-0.54) x10^3/uL Immature Gran # (Auto) (0.001-0.031) x10^3u/L Absolute Lymphs (auto) (1.32-3.57) x10^3/uL Absolute Monos (auto) (0.30-0.82) x10^3/uL Absolute Nucleated RBC (0.00-0.012) x10^3u/L Lymphocytes % (21.8-53.1) % Monocytes % (5.3-12.2) % Eosinophils % (0.8-7.0) % Basophils % (0.2-1.2) % Absolute Granulocytes (1.78-5.38) x10^3/uL Basophils # (0.01-0.08) x10^3/uL Sodium (135-145) mmol/L Potassium (3.5-5.1) mmol/L Chloride (98-107) mmol/L Carbon Dioxide (22-30) mmol/L Anion Gap (5-15) MEQ/L BUN (9-20) mg/dL Creatinine (0.66-1.25) mg/dL Estimated GFR ML/MIN Glucose (74-106) mg/dL POC Glucometer 128 H 104 (74 to 106) mg/dL Calcium (8.4-10.2) mg/dL Total Bilirubin (0.2-1.3) mg/dL AST (17-59) U/L ALT (0-50) U/L Alkaline Phosphatase (38-126) U/L Troponin I < 0.012 (0.000-0.033) ng/mL NT-Pro-B Natriuret Pep (<300) pg/mL Serum Total Protein (6.3-8.2) g/dL Albumin (3.5-5.0) g/dL Micro Results-Entire Visit: Accuchecks Date 10/14/24 Time 08:14 - Radiology Exams Ordered Rad Exams-Entire Visit: Radiology Procedures Category Date Time Status CHEST 1 VIEW (PORTABLE) Stat Exams 10/13/24 21:49 Completed GALLBLADDER [US] Urgent Exams 10/14/24 10:01 Ordered - Procedures and Test Procedures and Tests throughout Hospitalization: Therapy Orders & Screens 10/14/24 00:58 BiPap/CPAP ROUTINE Comment: may use home cpap per home settings Diagnosis: chest pain rule out 10/14/24 00:59 Respiratory Therapy Consult ONCE Comment: Reason For Exam: Diagnosis: chest pain rule out 10/14/24 02:17 EKG REPEAT IN AM Comment: Diagnosis: chest pain rule out Discharge Exam General Appearance: no apparent distress, alert, obese Neurologic Exam: alert, oriented x 3, cooperative, normal mood/affect, nml cerebellar function, sensation nml, No motor deficits Eye Exam: PERRL, EOMI, eyes nml inspection Ears, Nose, Throat Exam: normal ENT inspection, pharynx normal, moist mucous membranes Neck Exam: normal inspection, non-tender, supple, full range of motion Respiratory Exam: normal breath sounds, lungs clear, No respiratory distress Cardiovascular Exam: regular rate/rhythm, normal heart sounds Gastrointestinal/Abdomen Exam: soft, distention, other (hyperactive BS x4), No tenderness, No mass Male Genitalia Exam: deferred Rectal Exam: deferred Back Exam: normal inspection, normal range of motion, No CVA tenderness, No vertebral tenderness Extremity Exam: normal inspection, normal range of motion Skin Exam: normal color, warm, dry Final Diagnosis/Problem List - Final Discharge Diagnosis/Problem (1) Gaseous abdominal distention Current Visit: Yes Status: Acute Assessment & Plan: - GB US: Impression: Nonvisualization pancreas. Fatty liver. Remaining gallbladder sonogram is negative. - CBC, CMP reviewed - GAS-X PRN Code(s): R14.0 - ABDOMINAL DISTENSION (GASEOUS) (2) Chest pain Current Visit: Yes Status: Acute Assessment & Plan: - Trop x3 negative - F/U with cardilogy OP for further eval - EKG reviewed - Tele - CP with inspiration with radiation to back. -2:2 gas? Code(s): R07.9 - CHEST PAIN, UNSPECIFIED (3) HLD (hyperlipidemia) Current Visit: No Status: Chronic Assessment & Plan: - Continue Statin Code(s): E78.5 - HYPERLIPIDEMIA, UNSPECIFIED (4) HTN (hypertension) Current Visit: No Status: Chronic Assessment & Plan: - Bp controlled today - Continue home meds Code(s): I10 - ESSENTIAL (PRIMARY) HYPERTENSION (5) Type 2 diabetes mellitus Current Visit: No Status: Chronic Assessment & Plan: - Continue Metformin/Insulin - A1C - pending (6) Obesity (BMI 30-39.9) Current Visit: Yes Status: Chronic Assessment & Plan: - Advised ADA diet and exercise control Code(s): E66.9 - OBESITY, UNSPECIFIED (7) Fatty liver Current Visit: Yes Status: Acute Assessment & Plan: - As seen on US - Advise alcohol cessation - F/U OP with PCP D/C plan time was > 45 minutes Code(s): K76.0 - FATTY (CHANGE OF) LIVER, NOT ELSEWHERE CLASSIFIED - Discharge Discharge Date: 10/14/24 Disposition: Home, Self-Care Condition: Stable Prescriptions: Continue Gabapentin [Neurontin ] 400 mg PO BID Simvastatin 10 mg [Zocor 10MG] 40 mg PO DAILY Lisinopril 20 mg [Zestril 20 MG] 40 mg PO DAILY Insulin Glargine,Hum.rec.anlog [Basaglar Nichelleikpen U-100] 70 unit SQ HS Metformin HCl 500 mg [Glucophage 500 MG] 1,000 mg PO BID Semaglutide [Ozempic] 1 mg SQ WEEKLY Insulin Aspart (Niacinamide) [Fiasp 100 Unit/ml Vial] 20 unit SQ TIDWMEALS Fenofibrate 54 mg PO DAILY Cyanocobalamin (Vitamin B-12) [Vitamin B-12] 5,000 mg PO DAILY HydrALAzine HCL 25 MG TAB [Apresoline 25 MG TABLET] 25 mg PO BID Gabapentin [Neurontin] 600 mg PO HS Dapagliflozin Propanediol [Farxiga] 10 mg PO DAILY L.acidoph,Paracasei, B.lactis [Probiotic] 1 cap PO DAILY Acetaminophen/Diphenhydramine [Tylenol Pm Exstr 500-25Mg Cplt] 2 tab PO HS Furosemide 40 mg PO DAILY Instructions: Metabolic dysfunction-associated steatotic liver disease, Obesity, Adult, Chest pain - Discharge instructions Additional Instructions: You can buy gas -x OTC if you found this was helpful. Follow up with: NASRA SERVIN NP [Primary Care Provider, [facility]] - 10/21/24 1:30 pm PRINCESS MORTENSEN MD [NON-STAFF PHY W/O PRIVILEGES, CARDIOLOGY] - 11/10/24 8:00 am Referral Note: From Dr. Rao's office
--- NOTE | 2024-10-14 16:45 | XRAY ---
Indication: Postprandial pain. Two-dimensional gallbladder sonogram performed. Comparison: None Pancreas obscured due to overlying bowel gas. Visualized gallbladder normally distended without gallstones, wall thickening, or pericholecystic fluid. Common bile duct measures 4.9 mm. No intrahepatic biliary distention. Visualized liver is fatty in echogenicity. Right kidney measures 11.9 x 6.3 x 6.2 cm and sonographically unremarkable. Impression: Nonvisualization pancreas. Fatty liver. Remaining gallbladder sonogram is negative.
[2024-10-14 17:10] VITALS: BP 148/67; PULSE 75; TEMP 97.8; O2SAT 94
[2024-10-14] MEDS ORDERED: TYLENOL EXTRA STRENGTH 500 MG PO SCH (22:00)
[2024-10-14] MEDS ORDERED: NON-FORMULARY ITEM (Insulin Glargine,Hum.Rec.Anlog [Basaglar Kwikpen U-100] 100 UNIT/ML In SQ SCH (22:00)
[2024-10-14] MEDS ORDERED: NEURONTIN PO SCH (22:00)
[2024-10-14] MEDS ORDERED: NON-FORMULARY ITEM (Gabapentin [Neurontin] 600 MG Tablet) PO SCH (22:00)
[2024-10-14] MEDS ORDERED: BENADRYL 25 MG CAPSULE PO SCH (22:00)
== END 2024-10-14 17:51 | disposition home or self-care (01) ==
LOC: ED 21:26 → MED SURG 23:41
PROVIDERS: ADMIT Internal Medicine; ATTEND Internal Medicine
DX: R14.0 Abdominal distension (gaseous) (principal); R07.9 Chest pain, unspecified; E78.5 Hyperlipidemia, unspecified; E11.22 Type 2 diabetes mellitus with diabetic chronic kidney disease; I12.9 Hypertensive chronic kidney disease with stage 1 through stage 4 chronic kidney disease, or unspecified chronic kidney disease; N18.9 Chronic kidney disease, unspecified; E66.9 Obesity, unspecified; K76.0 Fatty (change of) liver, not elsewhere classified; Z79.899 Other long term (current) drug therapy
CPT/HCPCS: 36415; 71045; 76705; 80048; 80053; 82947; 83036; 83880; 84443; 84484; 85025; 93005; 93041; 93268; 99285; G0378; Q3014